=== PATIENT | female | born 1950 | race Caucasian/White ===

== ENCOUNTER 2020-01-03 08:08 | Day surgery (SDC) | payer OTHER ==
--- NOTE | 2020-01-02 15:01 | EKG ---
Test Date: 2020-01-02 Test Time: 10:42:58 [employer]: TORIBIO MEASUREMENT RESULTS: Intervals: Rate: 57 IL: 144 QRSD: 86 QT: 438 QTc: 426 Claude: P: 59 IL: 144 QRS: 24 T: 55 INTERPRETIVE STATEMENTS: Sinus bradycardia with sinus arrhythmia Otherwise normal ECG No previous ECG available for comparison Electronically Signed On 01-02-20 15:00:13 CDT by Noah Angulo
--- OUTSIDE RECORDS SUMMARY | 2020-01-03 08:11 | XMS REPORT ---
:1950 [facility] Address [address] [place] [address] [address] [place] [address] Care Team Providers Name Role Phone Unavailable Unavailable Unavailable Payers Payer Name Policy Type Policy Number Effective Date Expiration Date Problems This patient has no known problems. Allergies, Adverse Reactions, Alerts Allergy Allergy Status Severity Reaction(s) Onset Inactive Treating Comments Name Type Date Date Clinician No Known DA Active U 2019-10 Allergies 30 00:00:0 0 Medications This patient has no known medications. Results Test Description Test Time Test Comments Text Results Atomic Results Result Comments GLUBED 2019-11-22 09:12:00 Test Item Value Reference Range Comments GLUBED (test code=GLUBED) 126 mg/dL 60-125
[2020-01-03] MEDS ORDERED: NA CHLORIDE 0.9% 1,000 ML ONE (08:34)
[2020-01-03] MEDS ORDERED: FENTANYL CITR 100 MCG/2 ML ONE (09:21)
[2020-01-03] MEDS ORDERED: propofoL 200 MG/20 ML VIAL IV ONE (09:21)
[2020-01-03] MEDS ORDERED: LIDOCAINE 2% MPF 5 ML VIAL ONE (09:21)
[2020-01-03] MEDS ORDERED: MIDAZOLAM HCL 2 MG/2 ML INJ ONE (09:21)
[2020-01-03] MEDS ORDERED: NS 0.9% VIAL 10 ML ONE (09:33)
[2020-01-03] MEDS ORDERED: LIDOCAINE 1% W/EPI 1:100,000 MDV 20 ML VIAL ONE (09:44)
[2020-01-03] MEDS ORDERED: BSS OPTHALMIC SOL 15 ML BOT OPTH ONE (09:44)
[2020-01-03] MEDS ORDERED: LANO/MINERAL OIL/PETRO 3.5 GM ONE (09:44)
[2020-01-03] MEDS ORDERED: ONDANSETRON 4 MG/2 ML VIAL ONE (10:10)
[2020-01-03] MEDS ORDERED: dexAMETHasone 4 MG/ML VIAL ONE (10:10)
[2020-01-03] MEDS ORDERED: KETOROLAC 30 MG/ML INJ ONE (10:10)
--- NOTE | 2020-01-03 11:11 | P.BOP ---
Preoperative diagnosis: BCC nose Postoperative diagnosis: same Primary procedure: WLE with local tissue rearrangement, nose Roll Former: NONE,NONE Estimated blood loss: <5ml Specimen: nose, suture 12 oclock, FS Findings: negative margins Anesthesia: General Complications: None Implants: none Fluids & blood products: crystalloid 800ml Transferred to: Recovery Room Condition: Good
[2020-01-03 14:03] VITALS: BP 177/36; TEMP 97.3; O2SAT 100
--- NOTE | 2020-01-04 02:47 | OP ---
Date of Procedure: 01/03/2020 Surgeon: Rosana Galvez MD Preoperative Diagnosis: Basal cell, left nose. Postoperative Diagnosis: Basal cell, left nose. Procedure: Wide local excision, left nasal skin cancer with frozen section and closure by local tiss ue rearrangement including a bilobed flap. Indication For Procedure: Shanelle Sánchez presented to the ENT clinic with a biopsy-proven basal cell carc inoma of the left supratip region. The risks, benefits, and alternatives were discussed with the pat ient. Due to the location of the region, I suspected need for local tissue arrangement and recommend ed the procedure be done under general due to patient's inability to tolerate the procedure under loc al. Description Of Procedure: The patient was brought to the operating room. She was placed under gener al anesthesia via LMA. The nose and upper face were prepped with Betadine and draped in a sterile fa shion. A prior biopsy site including a small area of scab was noted. A Bovie electrocautery was use d to incise through the skin surrounding the lesion with approximately a 2-3 mm gross margin. The ex act margin was challenging due to prior biopsy and biopsy-related changes. The size of the defect wa s 11 x 9 mm. Specimen was marked with a suture at the superior aspect indicating 12 o'clock and was sent to the pathologist for frozen section. While awaiting frozen section, the nose was evaluated wi th regard to closure options. Options considered included healing by secondary intent, which was fel t to result in unsightly scar, skin graft, or local tissue flap. Due to the size and location of the lesion, a bilobed flap was elected and the skin of the nose was elevated using Bovie electrocautery and direct pressure was applied to the site while awaiting frozen section results The frozen section confirmed residual basal cell carcinoma with negative margins and decision was mad e to proceed with a bilobed flap. The flap was cut and rotated into position. The flap was secured with Vicryl sutures and the skin was closed with a running plain gut suture. The skin around the sit e was cleaned and dried and the incision was dressed with antibiotic ointment. The patient was then returned to care of Anesthesia for awakening and extubation in the operating room, which proceeded wi thout difficulty. Complications: None. Disposition: The patient will follow up with Dr. Galvez in about 10 days for an evaluation of wound healing. /SILKE Voice ID: [id number] Report ID: [id number]
== END 2020-01-03 13:45 | disposition home or self-care (01) ==
LOC: OR 08:08
PROVIDERS: ATTEND Otolaryngology
PROC: 0HB1XZZ Excision of Face Skin, External Approach (ICD-10-PCS; principal; 2020-01-03 09:45)
DX: C44.311 Basal cell carcinoma of skin of nose (principal); E11.9 Type 2 diabetes mellitus without complications; I10 Essential (primary) hypertension; E07.9 Disorder of thyroid, unspecified; E66.9 Obesity, unspecified; Z68.37 Body mass index [BMI] 37.0-37.9, adult; Z87.891 Personal history of nicotine dependence; Z80.9 Family history of malignant neoplasm, unspecified; Z82.49 Family history of ischemic heart disease and other diseases of the circulatory system
CPT/HCPCS: 93005; 82947 ×2; 88331; 88332; 88305; 14060; J2704; J2250; J3010; J7030; J2405

== ENCOUNTER 2021-11-21 18:34 | Emergency (ER) | payer OTHER ==
--- OUTSIDE RECORDS SUMMARY | 2021-11-21 18:38 | XMS REPORT | Continuity of Care Document ---
:1950 Author Organization [facility] t Address [address] [place] [address] Care Team Providers Name Role Phone Lia Mcfarland Attending Clinician Unavailable DINORAH Attending Clinician Unavailable Payton Krueger Attending Clinician [phone] Aaron Harding Attending Clinician Unavailable Zeenat Attending Clinician Unavailable Singh Tabor Attending Clinician Unavailable Flor Dang Attending Clinician Unavailable Lia Mcfarland Admitting Clinician Unavailable DINORAH Admitting Clinician Unavailable SALAS Admitting Clinician Unavailable Zeenat Admitting Clinician Unavailable Payers Payer Name Policy Type Policy Number Effective Date Expiration Date S [facility] [id number] 2021 (MEDICARE 00:00:00 REPLACEMENT/ADVANT AGE - HMO) MEDICARE B-[place]: [id number] 2017 [employer] 00:00:00 [employer] [facility] [id number] 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 [facility] Low back Problem Active 2012-102019-02-17 Mem oria pain 1-12 13:56:12 l (disorder) Low back 00:00: He rmann pain 00 (disorder) Active 09/03/2013 Problem 02/17/2019 Data migrated from [email or web address] on 03/21/15. Medical Group Diarrhea Problem Active 2019-02-17 Mem oria (finding) 06-25 13:56:12 l Diarrhea 00:00: Mushtaq n (finding) 00 Active 06/25/2013 Problem 02/17/2019 Data migrated from [email or web address] on 03/21/15. Medical Group Impaired Problem Active 2019-02-17 Mem oria fasting 03-11 13:56:12 l glycaemia Impaired 00:00: Her goyal (disorder) fasting 00 glycaemia (disorder) Active 03/11/2013 Problem 02/17/2019 Data migrated from [email or web address] on 05/27/15. 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 Medical Group Diabetes Problem Active 2019-02-17 Mem oria mellitus 13:56:12 l type 2 Diabetes Mushtaq n (disorder) mellitus type 2 (disorder) Active Problem 02/17/2019 Medical Group Essential Problem Active 2019-02-17 Me moria hypertensi 13:56:12 l on [place] (disorder) Essential hypertensi on (disorder) Active Problem 02/17/2019 Data migrated from [employer] on 03/21/15. Medical Group Hypothyroi Problem Active 2019-02-17 M emoria dism 13:56:12 l (disorder) Mushtaq n Hypothyroi dism (disorder) Active Problem 02/17/2019 Data migrated from [employer] on 03/21/15. Medical Group Obesity Problem Active 2019-02-17 Juanjo everett (disorder) 13:56:12 l Obesity Benjamín (disorder) Active Problem 02/17/2019 Medical Group Peripheral Problem Active 2019-02-17 M emoria nerve 13:56:12 l disease Benjamín (disorder) Peripheral nerve disease (disorder) Active Problem 02/17/2019 Data migrated from [employer] on 03/21/15. Medical Group Diabetes Problem Resolve 2012-2019-02-17 2019-02-17 Memoria mellitus d 03-11 13:56:12 13:56:12 l (disorder) Diabetes 00:00: He rmann mellitus 00 (disorder) Resolved 03/11/2013 Problem 02/17/2019 Data migrated from [employer] on 05/27/15.Edward a migrated from [employer] on 03/21/15. Medical Group Allergies, Adverse Reactions, Alerts Allergy Allergy Status Severity Reaction(s) Onset Inactive Treating Comm ents Source Name Type Date Date Clinician No Known DA Active U 2020-1 [facility] [facility] No Known DA Active U 2020-1 [facility]16 [place] [facility] No Known DA Active U 2020-0 [facility] [place] [facility] No Known DA Active U 2020-0 [facility]ie -[facility] [place] [facility] FLORECITA Allergy Active [place] INHIBITO to da RS substan [facility] e Group Other Other Active Memoria Food Food l Allergy< Allergy< Mushtaq n sup>1</s sup>1</s up> up> Social History Social Habit Start Date Stop Date Quantity Comments Source Social History 2016-05-13 2016-05-13 Karl garrison 21:37:32 21:37:32 Smoking Status Start Date Stop Date Source Former Smoker [facility] Medications Ordered Filled Start Stop Current Ordering Indication Dosage Frequency Signature Comments Components Source Medication Medication Date Date Medication? Clinician (SIG) Name Name Cecilia 2017-10 Yes See Memori a thiazide 0-08 Instructio l 12.5 MG / 21:29: ns, # 90 Herm freddy Losartan 10 tab, TAKE Potassium 1 TABLET 100 MG Oral BY MOUTH Tablet EVERY DAY., Pharmacy: [facility] Hydrochloro No See Memori a thiazide 7-23 Instructio l 12.5 MG / 15:27: ns, # 90 Herm freddy Losartan 29 tab, TAKE Potassium 1 TABLET 100 MG Oral BY MOUTH Tablet EVERY DAY., Pharmacy: [facility] Hydrochloro Yes See Memori a thiazide 6-28 Instructio l 12.5 MG / 14:43: ns, # 90 Herm freddy Losartan 29 tab, TAKE Potassium 1 TABLET 100 MG Oral BY MOUTH Tablet EVERY DAY., Pharmacy: [facility] lisinopril lisinopril No lisinopril [place] 20 mg 20 mg 20 mg da tablet TAKE tablet TAKE tablet Medical 1 TABLET BY 1 TABLET BY TAKE 1 Group MOUTH TWICE MOUTH TWICE TABLET BY DAILY DAILY MOUTH TWICE DAILY metoprolol metoprolol No metoprolol [place] succinate succinate succinate da ER 25 mg ER 25 mg ER 25 mg Med ical tablet,exte tablet,exte tablet,ext Group nded nded ended release 24 release 24 release 24 hr TAKE 1 hr TAKE 1 hr TAKE 1 TABLET BY TABLET BY TABLET BY MOUTH ONCE MOUTH ONCE MOUTH ONCE DAILY FOR DAILY FOR DAILY FOR 30 DAYS 30 DAYS 30 DAYS oxybutynin oxybutynin No oxybutynin [place] chloride ER chloride ER chloride da 10 mg 10 mg ER 10 mg Medical tablet,exte tablet,exte tablet,ext Group nded nded ended release 24 release 24 release 24 hr TAKE 1 hr TAKE 1 hr TAKE 1 TABLET BY TABLET BY TABLET BY MOUTH ONCE MOUTH ONCE MOUTH ONCE DAILY DAILY DAILY valsartan valsartan No valsartan [place] 320 mg 320 mg 320 mg da tablet TAKE tablet TAKE tablet Medical 1 TABLET BY 1 TABLET BY TAKE 1 Group MOUTH ONCE MOUTH ONCE TABLET BY DAILY DAILY MOUTH ONCE DAILY venlafaxine venlafaxine No venlafaxin [place] ER 150 mg ER 150 mg e ER 150 d a capsule,ext capsule,ext mg M edical ended ended capsule,ex Group release 24 release 24 tended hr TAKE 1 hr TAKE 1 release 24 CAPSULE BY CAPSULE BY hr TAKE 1 MOUTH ONCE MOUTH ONCE CAPSULE BY DAILY DAILY MOUTH ONCE DAILY cyclobenzap cyclobenzap No cyclobenza [place] rine 5 mg rine 5 mg elva 5 mg da tablet TAKE tablet TAKE tablet Medical 1 TABLET BY 1 TABLET BY TAKE 1 Group MOUTH ONCE MOUTH ONCE TABLET BY DAILY DAILY MOUTH ONCE NEEDED NEEDED DAILY NEEDED Eliquis 5 Eliquis 5 No Eliquis 5 [place] mg tablet mg tablet mg tablet da TAKE 1 TAKE 1 TAKE 1 Medical TABLET BY TABLET BY TABLET BY Group MOUTH TWICE MOUTH TWICE MOUTH DAILY DAILY TWICE DAILY Euthyrox Euthyrox No Euthyrox [place] 112 mcg 112 mcg 112 mcg da tablet TAKE tablet TAKE tablet Medical 1 TABLET BY 1 TABLET BY TAKE 1 Group MOUTH ONCE MOUTH ONCE TABLET BY DAILY DAILY MOUTH ONCE DAILY furosemide furosemide No furosemide [place] 20 mg 20 mg 20 mg da tablet TAKE tablet TAKE tablet Medical 1 TABLET BY 1 TABLET BY TAKE 1 Group MOUTH TWICE MOUTH TWICE TABLET BY A WEEK FOR A WEEK FOR MOUTH 10 DAYS 10 DAYS TWICE A WEEK FOR 10 DAYS gabapentin gabapentin No gabapentin [place] 400 mg 400 mg 400 mg da capsule capsule capsule Medica l TAKE 1 TAKE 1 TAKE 1 Group CAPSULE BY CAPSULE BY CAPSULE BY MOUTH THREE MOUTH THREE MOUTH TIMES DAILY TIMES DAILY THREE FOR 90 DAYS FOR 90 DAYS TIMES DAILY FOR 90 DAYS Vital Signs Vital Name Observation Time Observation Value Comments Source BP Diastolic 2021-01-01 00:00:00 71 mm[facility]Hg[facility] Height 2021-01-01 00:00:00 66 [in_i] [facility] BMI (Body Mass 2021-01-01 00:00:00 37.3 kg/m2 [facility] Medical Index) Group BP Systolic 2021-01-01 00:00:00 96 mm[facility]Hg[facility] Body Weight 2021-01-01 00:00:00 231.4 [lb_av] [facility] Height 2015-05-11 13:40:41 [facility] Weight 2015-05-11 13:40:41 [facility] Temperature Oral (F) 2015-05-11 13:40:41 98.5 F [facility] Heart Rate 2015-05-11 13:40:41 [facility] [place] Systolic (mm Hg) 2015-05-11 13:40:41 Juanjo rial Benjamín Diastolic (mm Hg) 2015-05-11 13:40:41 Mem o[facility] [place] Height 2015-03-10 16:27:02 [facility] [place] Weight 2015-03-10 16:27:02 [facility] Temperature Oral (F) 2015-03-10 16:27:02 99.0 F [facility] Heart Rate 2015-03-10 16:27:02 [facility] Systolic (mm Hg) 2015-03-10 16:27:02 Juanjo rial [place] Diastolic (mm Hg) 2015-03-10 16:27:02 Mem orial [place] Height 2014-11-24 17:00:01 [facility] Weight 2014-11-24 17:00:01 [facility] [place] Temperature Oral (F) 2014-11-24 17:00:01 99.0 F [facility] Heart Rate 2014-11-24 17:00:01 [facility] [place] Systolic (mm Hg) 2014-11-24 17:00:01 Juanjo rial [place] Diastolic (mm Hg) 2014-11-24 17:00:01 Mem orial [place] Height 2014-10-28 16:43:11 [facility] [place] Weight 2014-10-28 16:43:11 [facility] Temperature Oral (F) 2014-10-28 16:43:11 98.4 F [facility] [place] Respitory Rate 2014-10-28 16:43:11 Memori al [place] Heart Rate 2014-10-28 16:43:11 [facility] Systolic (mm Hg) 2014-10-28 16:43:11 Juanjo rial [place] Diastolic (mm Hg) 2014-10-28 16:43:11 Mem orial [place] Weight 2014-05-26 16:24:20 [facility] Temperature Oral (F) 2014-05-26 16:24:20 99.3 F [facility] Respitory Rate 2014-05-26 16:24:20 Memori al [place] Heart Rate 2014-05-26 16:24:20 [facility] [place] Systolic (mm Hg) 2014-05-26 16:24:20 Juanjo rial [place] Diastolic (mm Hg) 2014-05-26 16:24:20 Mem orial [place] Weight 2014-02-03 20:08:51 [facility] Temperature Oral (F) 2014-02-03 20:08:51 98.0 F [facility] [place] Respitory Rate 2014-02-03 20:08:51 Memori al [place] Heart Rate 2014-02-03 20:08:51 [facility] Systolic (mm Hg) 2014-02-03 20:08:51 Juanjo rial [place] Diastolic (mm Hg) 2014-02-03 20:08:51 Mem orial [place] Weight 2013-09-03 15:45:41 [facility] Temperature Oral (F) 2013-09-03 15:45:41 97.5 F [facility] [place] Systolic (mm Hg) 2013-09-03 15:45:41 Juanjo rial [place] Diastolic (mm Hg) 2013-09-03 15:45:41 Mem o[facility] [place] Heart Rate 2013-09-03 15:45:41 [facility] [place] Weight 2013-06-25 21:36:30 [facility] [place] Temperature Oral (F) 2013-06-25 21:36:30 97.9 F [facility] [place] Systolic (mm Hg) 2013-06-25 21:36:30 Juanjo rial [place] Diastolic (mm Hg) 2013-06-25 21:36:30 Mem orial [place] Heart Rate 2013-06-25 21:36:30 [facility] Weight 2013-03-11 14:36:40 [facility] [place] Height 2013-03-11 14:36:40 [facility] [place] Systolic (mm Hg) 2013-03-11 14:36:40 Juanjo rial [place] Diastolic (mm Hg) 2013-03-11 14:36:40 Mem o[facility] [place] Heart Rate 2013-03-11 14:36:40 [facility] [place] Temperature Oral (F) 2013-03-11 14:36:40 97.7 F [facility] [place] Procedures Procedure Date / Time Performing Clinician Source Performed Incision and drainage of 2009-10-23 00:00:00 Mem orial [place] abdominal abscess<sup>1</sup> Abdominal hysterectomy [facility] Appendectomy [facility] Hiatus hernia repair [facility] Laparoscopic adjustable [facility] [place] gastric banding Tonsillectomy [facility] [place] Tonsillectomy [facility] App[facility] Total [facility]sterectomy [facility] Repair of Shoulder [facility] Encounters Start End Encounter Admission Attending Care Care Encounter Source Date/Time Date/Time Type Type Clinicians Facility Department ID 2020-02-04 Inpatient EDELMIRA JallohPM INTE [id number] [facility] 11:34:00 Placido [id number] [facility] [place] 2020-02-04 Inpatient EDELMIRA JallohPM INTE [id number] [facility] 11:33:00 [facility] [id number] [facility] [place] 2021-11-03 2021-11-03 Outpatient DINORAH [facility] [id number] Sarah Ann 01:08:00 01:08:00 [facility] 2021-11-03 2021-11-03 Outpatient Mell Krueger [facility] [id number] 00:00:00 00:00:00 Payton [id number] 2021-10-12 2021-10-12 Outpatient DINORAH [facility] [id number] Sarah Ann 04:41:00 04:41:00 [facility] 2021-09-23 2021-09-23 Outpatient Champion_P [facility] [id number] [place] 04:23:00 04:23:00 [id number] 2021-09-23 2021-09-23 Outpatient Champion_P [facility] [id number] [place] 04:23:00 04:23:00 [id number] [facility] 2021-09-08 2021-09-08 Outpatient Champion_P [facility] [id number] [place] 05:26:00 05:26:00 [id number] [facility] 2021-09-08 2021-09-08 Outpatient Champion_P [facility] [id number] [place] 05:26:00 05:26:00 [id number] [facility] 2021-09-07 2021-09-07 Outpatient DINORAH [facility] [id number] Sarah Ann 05:31:00 05:31:00 116 [facility] 2021-09-07 2021-09-07 Outpatient Mell Krueger [facility] [id number] 00:00:00 00:00:00 Payton [id number] 2021-07-20 2021-07-20 Outpatient KECLARKE_Aaron [facility] [id number] Sarah Ann 10:50:00 10:50:00 928 [facility] 2021-07-20 2021-07-20 Outpatient Mell Krueger [facility] [id number] 00:00:00 00:00:00 Payton [id number] 2021-07-20 2021-07-20 Outpatient Mell Krueger [facility] [id number] 00:00:00 00:00:00 Payton [id number] 2021-05-18 2021-05-18 Outpatient EL Gahremanpou HCAPM RADI [id number] [facility] 13:16:00 13:16:00 Marlene flores [id number] [facility] [place] 2021-05-13 2021-05-13 Outpatient Gahremanpou HCAPM HCAPM [id number] [facility] 09:00:00 09:00:00 Marlene flores [id number] [facility] [place] 2021-04-27 2021-04-27 Outpatient BALJIT_Aaron [facility] [id number] Sarah Ann 05:12:00 05:12:00 706 [facility] 2021-04-27 2021-04-27 Outpatient Mell Krueger [facility] [id number] 00:00:00 00:00:00 Payton [id number] 2021-04-08 2021-04-08 Outpatient KEFFER_A [facility] [id number] Sarah Ann 12:42:00 12:42:00 617 [facility] 2021-04-08 2021-04-08 Outpatient KEFFER_A [facility] [id number] Sarah Ann 12:42:00 12:42:00 701 [facility] 2021-04-08 2021-04-08 Outpatient Baljit, Mell [facility] [id number] 00:00:00 00:00:00 Payton [id number] 2021-02-04 2021-02-04 Outpatient KEFFER_A [facility] [id number] Sarah Ann 01:22:00 01:22:00 415 [facility] 2021-02-04 2021-02-04 Outpatient KEFFER_A [facility] [id number] Sarah Ann 01:22:00 01:22:00 531 [facility] 2021-02-04 2021-02-04 Outpatient Mell Krueger [facility] [id number] 00:00:00 00:00:00 Payton [id number] 2021-01-06 2021-01-06 Outpatient KEFFER_A [facility] [id number] Sarah Ann 12:58:00 12:58:00 317 [facility] 2021-01-06 2021-01-06 Outpatient Mell Krueger [facility] [id number] 00:00:00 00:00:00 Payton [id number] 2021-01-05 2021-01-05 Outpatient KEFFER_A [facility] [id number] Sarah Ann 05:38:00 05:38:00 316 [facility] 2021-01-02 2021-01-02 Outpatient Yan_W [facility] [id number] [place] 12:15:00 12:15:00 0313 Medical [facility] 2021-01-01 2021-01-01 [facility] [id number] [place] 11:18:00 11:18:00 0312 [facility] 2021-01-01 2021-01-01 FLORECITA Rosenbaum [place] - [id number] [place] 00:00:00 00:00:00 : Leticia Real [facility] [address], [facility] [facility] [address] , Ph. 2020-12-31 2020-12-31 Outpatient Yan_W [facility] MMG [id number] [place] 05:34:00 05:34:00 0311 [facility] 2020-12-22 2020-12-22 Outpatient MMG MMG [id number] [place] 03:56:00 03:56:00 0302 [facility] 2020-12-21 2020-12-21 Outpatient MMG MMG [id number] [place] 01:36:00 01:36:00 301 [facility] 2020-12-21 2020-12-21 Outpatient MMG [id number] [id number] [place] 01:36:00 01:36:00 302 [facility] 2020-11-18 2020-11-18 Outpatient BALJIT_Aaron [facility] [id number] Sarah Ann 12:35:00 12:35:00 127 [facility] 2020-11-18 2020-11-18 Outpatient Mell Krueger [facility] [id number] 00:00:00 00:00:00 Payton [id number] 2020-10-07 2020-10-07 Outpatient Sharona, EDELMIRATO PAIN [id number] [facility] 09:00:00 09:00:00 Willy [id number] [facility] 2020-02-05 2020-02-05 Outpatient EDELMIRA McfarlandCL OUTD [id number] [facility] 00:13:00 00:13:00 Placido [id number] [facility] 2020-02-05 2020-02-05 Outpatient Bartolo, HCACL OUTD [id number] [facility] 00:13:00 00:13:00 Placido [id number] [facility] 2019-11-22 2019-11-22 Outpatient EDELMIRA DangTO SURG [id number] [facility] 14:00:00 14:00:00 Andres [id number] [facility] 2018-07-30 2018-08-01 Phone [facility] [id number] Memoria 20:07:00 04:59:59 Message r Primary 21 l Care Chetan Shelley nn 2018-05-14 2018-05-16 Phone nullFlavo [facility] [id number] Memoria 13:49:00 04:59:59 Message r Primary 20 flor Rosa nn 2018-04-19 2018-04-21 Phone nullFlavo [facility] [id number] Memoria 14:01:00 04:59:59 Message r Primary 19 flor Rosa nn 2017-02-16 2017-02-16 Outpatient MHIE MHIE [id number] Memoria 13:00:00 13:00:00 12 flor [place]jam[place] 2016-12-01 2016-12-01 Outpatient MHIE MHIE [id number] Memoria 09:15:00 09:15:00 11 flor [place]jamín 2016-12-01 2016-12-01 Outpatient MHIE MHIE [id number] Memoria 09:15:00 09:15:00 10 flor [place] 2016-12-01 2016-12-01 Outpatient MHIE MHIE [id number] Memoria 08:00:00 08:00:00 09 flor [place]ín 2016-11-21 2016-11-21 Outpatient MHIE MHIE [id number] Memoria 10:00:00 10:00:00 07 flor [place] 2016-11-21 2016-11-21 Outpatient MHIE MHIE [id number] Memoria 08:00:00 08:00:00 08 flor Butts 2016-11-04 2016-11-04 Outpatient MHIE MHIE [id number] Memoria 10:00:00 10:00:00 06 flor Butts 2016-09-08 2016-09-08 Outpatient MHIE MHIE [id number] Memoria 13:45:00 13:45:00 05 flor Butts 2016-05-13 2016-05-13 Outpatient MHIE MHIE [id number] Memoria 16:25:00 16:25:00 04 flor Butts 2015-12-31 2015-12-31 Outpatient MHIE MHIE [id number] Memoria 10:00:00 10:00:00 03 flor Butts 2015-08-26 2015-08-26 Outpatient MHIE MHIE [id number] Memoria 16:00:00 16:00:00 02 flor Butts 2015-07-17 2015-07-17 Outpatient MHIE MHIE [id number] Memoria 16:25:00 16:25:00 01 flor Benjamín 2015-05-11 2015-05-11 Outpatient [facility] MHIE [id number] Memoria 09:00:00 09:00:00 00 flor Benjamín Results Test Description Test Time Test Comments Results Result [facility] e Comments - XR FLUORO FOR 2020-10-07 SPINE INJ 22:02:00 [facility] : 1950 Sex: F Patient Name: FREDDY REYNOSO Unit No: [id number] EXAMS: CPT CODE: [id number] XR FLUORO FOR SPINE INJ 20752 DIAGNOSTIC CERVICAL TRANSFORAMINAL EPIRADICULAR INJECTION REFERRAL PHYSICIAN: Bird Presley M.D. PREOPERATIVE DIAGNOSIS: Cervical radiculitis.. POSTOPERATIVE DIAGNOSIS: Right C5-6 facet subluxation with moderate bony foraminal stenosis and primary right C6 radicular pain PROCEDURES PERFORMED: Fluoroscopically guided needle localization of the right C5 and right C6 spinal nerves with transforaminal epidurograms and epidural injection of local anesthetic and steroid. FINDINGS: Facet subluxation and mild hypertrophy with uncovertebral joint mild hypertrophy produces moderate bony foraminal stenosis at C5-6 on the right. Good flow seen through the right C4-5 foramen and posterior right C5-6 foramen. Provocation with injection was negative. Anesthetic response was positive with the patient noting complete relief of her right neck and upper extremity pain. Preinjection VAS 8/10. Postinjection VAS 0/10. Steroid response pending follow-up. ESTIMATED BLOOD LOSS: Minimal ANESTHESIA: TIVA COMPLICATIONS: None. DETAILS OF PROCEDURE: After obtaining stable vital signs, informed consent and IV access, with no contraindications, the patient was taken to the operating room and placed in a 15 degree head-up supine position with all extremities padded and appropriate monitors placed. The patient was sterilely prepped and draped over the neck. Using fluoroscopic visualization, the insertion sites were marked for anterolateral paravertebral approaches and using standard technique, a 27 gauge needle was advanced until contacting each corresponding superior articular process without paresthesias. Isovue-300 contrast 0.5 mL was injected incrementally with digital subtraction to produce each epidurogram. There were no signs of intravascular or intrathecal uptake. Lidocaine 4% 0.8 mL with Decadron 8 mg was then injected incrementally with frequent negative aspirations at each site. There were no signs of intravascular or intrathecal uptake. The needles were removed and the patient was taken to the PACU in good condition. Image: Image 1 Image: Image 2 at 2201 Reported and signed by: Willy Tabor M.D. [facility] NAME: FREDDY REYNOSO [address] [facility] PHYS: Willy Brown MD [place], [place] [address] : 1950 AGE: 70 SEX: F LOC: [place] PHONE #: [phone] EXAM DATE: 10/07/2020 STATUS: [facility] FA[place] #: [phone] RAD #: D/C DT PAGE 1 Signed Report (CONTINUED) Patient Name: FREDDY REYNOSO MARIO Unit No: [id number] EXAMS: CPT CODE: [id number] XR FLUORO FOR SPINE INJ 08438 <Continued> CC: Technologist: Laura Suero(R) Transcribed D/ (2201) [facility] NAME: FREDDY REYNOSO [address] [facility] PHYS: Willy Brown MD [place], [place] [address] : 1950 AGE: 70 SEX: F LOC: [place] PHONE #: [phone] EXAM DATE: 10/07/2020 STATUS: [facility] FA[place] #: [phone] RAD #: D/C DT PAGE 2 Signed Report Patient Name: FREDDY REYNOSO Unit No: [id number] EXAMS: CPT CODE: [id number] XR FLUORO FOR SPINE INJ 20827 <Continued> Orig Print D/T: S: 10/07/2020 (2205) [facility] NAME: FREDDY REYNOSO [address] [facility] PHYS: Willy Brown MD [place], [place] [address] : 1950 AGE: 70 SEX: F LOC: VEDA PHONE #: [phone] EXAM DATE: 10/07/2020 STATUS: REG [facility] FAX #: [phone] RAD #: D/C DT PAGE 3 Signed Report GLUCOSE BEDSIDE TESTING 2020-02-05 11:16:00 Test Item Value Reference Range Interpretation Comme nts GLUCOSE BEDSIDE TESTING (test code = GLUBED) 176 mg/dL 70-110 H GLUCOSE BEDSIDE [id number] 07:21:00 Test Item Value Reference Range Interpretation Comments GLUCOSE BEDSIDE TESTING (test code 163 mg/dL 70-110 H = GLUBED) BASIC METABOLIC [id number] 06:06:00 Test Item Value Reference Range Interpretation Comments SODIUM (test code = NA) 142 mmol/L 134-147 N POTASSIUM (test code = 3.5 mmol/L 3.4-5.0 N K) CHLORIDE (test code = 106 mmol/L 100-108 N CL) CARBON DIOXIDE (test 29 mmol/L 21-32 N code = CO2) ANION GAP (test code = 7.0 GAP calc 4.0-15.0 N GAP) GLUCOSE (test code = 111 MG/DL 70-110 H GLU) BLOOD UREA NITROGEN 18 MG/DL 7-18 N (test code = BUN) GLOMERULAR FILTRATION >=60 max estimate >60 RATE (test code = GFR) estGFR CREATININE (test code = 0.9 MG/DL 0.6-1.0 N CREAT) CALCIUM (test code = CA) 9.2 MG/DL 8.5-10.1 N CBC W/AUTO [id number] 05:57:00 Test Item Value Reference Range Interpretation Comments WHITE BLOOD CELL (test code = 9.6 K/mm3 3.5-11.0 N WBC) RED BLOOD CELL (test code = RBC) 5.08 M/mm3 4.70-6.10 N HEMOGLOBIN (test code = HGB) 14.7 G/DL 10.4-14.9 N HEMATOCRIT (test code = HCT) 45.6 % 31.5-44.1 H MEAN CELL VOLUME (test code = 89.8 Fl 84.5-98.6 N MCV) MEAN CELL HGB (test code = MCH) 28.9 pg 27.0-34.2 N MEAN CELL HGB CONCETRATION (test 32.2 G/DL 31.5-34.0 N code = MCHC) RED CELL DISTRIBUTION WIDTH (test 14.2 SD 11.5-14.5 N code = RDW) PLATELET COUNT (test code = PLT) 250.0 K/mm3 150-450 N MEAN PLATELET VOLUME (test code = 10.70 fL 7.0-10.5 H MPV) NEUTROPHIL % (test code = NT%) 50.6 % 40-76 LYMPHOCYTE % (test code = LY%) 38.7 % 20.5-51.1 N MONOCYTE % (test code = MO%) 7.6 % 1.7-9.3 N EOSINOPHIL % (test code = EO%) 2.6 % 0.0-6.0 N BASOPHIL % (test code = BA%) 0.5 % 0.0-2.0 N NEUTROPHIL # (test code = NT#) 4.84 K/mm3 1.8-7.6 N LYMPHOCYTE # (test code = LY#) 3.7 K/mm3 0.6-3.2 H MONOCYTE # (test code = MO#) 0.7 K/mm3 0.3-1.1 N EOSINOPHIL # (test code = EO#) 0.3 K/mm3 0.0-0.4 N BASOPHIL # (test code = BA#) 0.1 K/mm3 0.0-0.1 N MANUAL DIFF REQUIRED (test code = NO DIFF/SCN CRITERIA MDIFF) RULE OUT [place] [id number] 00:54:00 Test Item Value Reference Range Interpretation Comments CREATINE KINASE 68 Unit/L 26-192 N (CK) (test code = CK) TROPONIN-I (test 0.137 NG/ML 0.000-0.045 HH Negative: < /= 0.045 code = TROPI) Positive: >/= 0.046 Correlation wit h serial results, other cardiac markers, and cl inical findings is nec essary to determine th e clinical signi ficance of this result. Quantitative re sults using different methodologies s hould not be compared to one another as nume rical results may siva yby method. GLUCOSE BEDSIDE [id number] 21:28:00 Test Item Value Reference Range Interpretation Comments GLUCOSE BEDSIDE TESTING (test code 120 mg/dL 70-110 H = GLUBED) RULE OUT OH [id number] 17:55:00 Test Item Value Reference Range Interpretation Comments CREATINE KINASE 76 Unit/L 26-192 N (CK) (test code = CK) TROPONIN-I (test 0.344 NG/ML 0.000-0.045 HH Negative: < /= 0.045 code = TROPI) Positive: >/= 0.046 Correlation wit h serial results, other cardiac markers, and cl inical findings is nec essary to determine th e clinical signi ficance of this result. Quantitative re sults using different methodologies s hould not be compared to one another as nume rical results may siva yby method. LACTIC [id number] 17:48:00 Test Item Value Reference Range Interpretation Comments LACTIC ACID (test code = LACT) 1.5 mmol/L 0.4-2.0 N GLUCOSE BEDSIDE [id number] 16:55:00 Test Item Value Reference Range Interpretation Comments GLUCOSE BEDSIDE TESTING (test code 124 mg/dL 70-110 H = GLUBED) [id number] 13:35:00 Test Item Value Reference Range Interpretation Comments D-DIMER (test code = DDIMER) 453 ng/mLFEU 215-500 N GLYCOSYLATED HEMOGLOBIN [id number] 12:59:00 Test Item Value Reference Range Interpretation Comments GLYCOSYLATED HEMOGLOBIN (HA1C) 6.5 % A1C 0.0-5.7 H (test code = GLYHGB) ESTIMATED AVERAGE GLUCOSE (test 140 MG/DLest code = EAG) LACTIC [id number] 12:50:00 Test Item Value Reference Range Interpretation Comments LACTIC ACID (test code = LACT) 2.1 mmol/L 0.4-2.0 H COMPREHENSIVE METABOLIC [id number] 12:49:00 Test Item Value Reference Range Interpretation Comments SODIUM (test code = NA) 141 mmol/L 134-147 N POTASSIUM (test code = K) 3.4 mmol/L 3.4-5.0 N CHLORIDE (test code = CL) 107 mmol/L 100-108 N CARBON DIOXIDE (test code = CO2) 28 mmol/L 21-32 N ANION GAP (test code = GAP) 6.0 GAP calc 4.0-15.0 N GLUCOSE (test code = GLU) 144 MG/DL 70-110 H BLOOD UREA NITROGEN (test code = 13 MG/DL 7-18 N BUN) GLOMERULAR FILTRATION RATE (test 59 estGFR >60 L code = GFR) CREATININE (test code = CREAT) 1.0 MG/DL 0.6-1.0 N TOTAL PROTEIN (test code = PROT) 6.8 G/DL 6.4-8.2 N ALBUMIN (test code = ALB) 3.6 G/DL 3.4-5.0 N GLOBULIN (test code = GLOB) 3.2 GM/dL ALBUMIN/GLOBULIN RATIO (test 1.1 RATIO 1.2-2.2 L code = A/G) CALCIUM (test code = CA) 8.4 MG/DL 8.5-10.1 L BILIRUBIN TOTAL (test code = 0.40 MG/DL 0.2-1.2 N BILT) SGOT/AST (test code = AST) 11 Unit/L 15-37 L SGPT/ALT (test code = ALT) 18 Unit/L 12-78 N ALKALINE PHOSPHATASE TOTAL (test 83 Unit/L 45-117 N code = ALKP) LIPID PROFILE (CORONARY RISK)2020-02-04 12:49:00 Test Item Value Reference Range Interpretation Comments TRIGLYCERIDES (test code = TRIG) 247 MG/DL 0-150 H CHOLESTEROL (test code = CHOL) 195 MG/DL 133-200 N CHOLESTEROL/HDL RATIO (test code = 4.33 RATIO >0 CHOLHDL) HDL CHOLESTEROL (test code = HDL) 45 MG/DL 40-59 N NON-HDL CHOLESTEROL (test code = 150 mg/dL <130 H NHDL) LIPOPROTEIN LDL (test code = LDL) 125 MG/DL 0-129 N LDL/HDL (test code = LDL/HDL) 2.77 Ratio 1.48-3.22 Avg N [id number] 12:49:00 Test Item Value Reference Range Interpretation Comments PHOSPHOROUS (test code = PHOS) 3.4 MG/DL 2.5-4.9 N RULE OUT OH [id number] 12:49:00 Test Item Value Reference Range Interpretation Comments CREATINE KINASE 94 Unit/L 26-192 N (CK) (test code = CK) TROPONIN-I (test 0.251 NG/ML 0.000-0.045 HH Negative: < /= 0.045 code = TROPI) Positive: >/= 0.046 Correlation wit h serial results, other cardiac markers, and cl inical findings is nec essary to determine th e clinical signi ficance of this result. Quantitative re sults using different methodologies s hould not be compared to one another as nume rical results may siva yby method. [id number] 12:49:00 Test Item Value Reference Range Interpretation Comments MAGNESIUM (test code = MAG) 1.8 MG/DL 1.8-2.4 N THYROID STIMULATING [id number] 12:49:00 Test Item Value Reference Range Interpretation Comments THYROID STIMULATING HORMONE 2.810 mcIU/ML 0.340-4.820 N (test code = TSH) CBC W/AUTO [id number] 12:33:00 Test Item Value Reference Range Interpretation Comments WHITE BLOOD CELL (test code = 9.4 K/mm3 3.5-11.0 N WBC) RED BLOOD CELL (test code = RBC) 4.78 M/mm3 4.70-6.10 N HEMOGLOBIN (test code = HGB) 13.7 G/DL 10.4-14.9 N HEMATOCRIT (test code = HCT) 42.7 % 31.5-44.1 N MEAN CELL VOLUME (test code = 89.3 Fl 84.5-98.6 N MCV) MEAN CELL HGB (test code = MCH) 28.7 pg 27.0-34.2 N MEAN CELL HGB CONCETRATION (test 32.1 G/DL 31.5-34.0 N code = MCHC) RED CELL DISTRIBUTION WIDTH (test 13.8 SD 11.5-14.5 N code = RDW) PLATELET COUNT (test code = PLT) 243.0 K/mm3 150-450 N MEAN PLATELET VOLUME (test code = 10.80 fL 7.0-10.5 H MPV) NEUTROPHIL % (test code = NT%) 57.8 % 40-76 N LYMPHOCYTE % (test code = LY%) 29.7 % 20.5-51.1 N MONOCYTE % (test code = MO%) 8.8 % 1.7-9.3 N EOSINOPHIL % (test code = EO%) 3.3 % 0.0-6.0 N BASOPHIL % (test code = BA%) 0.4 % 0.0-2.0 N NEUTROPHIL # (test code = NT#) 5.43 K/mm3 1.8-7.6 N LYMPHOCYTE # (test code = LY#) 2.8 K/mm3 0.6-3.2 N MONOCYTE # (test code = MO#) 0.8 K/mm3 0.3-1.1 N EOSINOPHIL # (test code = EO#) 0.3 K/mm3 0.0-0.4 N BASOPHIL # (test code = BA#) 0.0 K/mm3 0.0-0.1 N MANUAL DIFF REQUIRED (test code = NO DIFF/SCN CRITERIA MDIFF) [id number] 09:12:00 Test Item Value Reference Range Interpretation Comments GLUBED (test code = GLUBED) 126 mg/dL 60-125 H [id number] 14:55:0032[facility] JuinwvjVctvvuuod6700-72-17 14:55:0022 [facility] KzptpowLihfteffj9401-63-26 14:55:0086[facility] 2015-05-11 14:55:000.915[facility] DltlxiuVygytywxrs5768-00-90 14:55:0014.9 [facility] WuvfgvcZxnzqsckmu7232-46-48 14:55:0044.8[facility] 2015-05-11 14:55:84334 K/CMMMemorial IhamcidBuhisjhdy1830-56-71 14:55:005.8 [facility] MshjwspKwqjfltct3842-96-88 14:55:44671Vbdbdzxi [facility] 2015-05-11 14:55:20836Qkdkijvn BobttlsNnkqvafml1699-56-29 14:55:0057[facility] BsoimrjUhmfucufb1765-74-76 14:55:0097[facility] SvpwgiuYiprrmvhl3978-23-21 14:55:62447 MEQ/LMemorial DbcvgtkFfvdeoqvu9986-89-73 14:55:004.1 MEQ/LMemorial WklkkyzKmhkgwxfx1653-89-09 14:55:001.1[facility] KagtdieEdsbudhcs3939-31-07 14:55:0024[facility] DqxrxfvRmokieuri6531-06-55 14:55:00 Test Item Value Reference Range Interpretation Comments BUN/CREAT (test code = BUN/CREAT) 22 04-16 [facility] JluujalDxaqaibbu3055-61-46 14:55:004.4[facility] 2015-05-11 14:55:009.7[facility] CqypnjeJudrlubha5873-33-22 17:30:005.9[facility] OqwkyikZcuaocujv2872-46-99 17:30:94774Lontvijt SicauxaNvcunvrjv8835-35-36 17:30:80394Flnikchi XwgraewOkuoqtybz6534-98-45 17:30:0062[facility] Sagjtnuch4568-30-60 17:30:26950Cojvtidc TnrpgkjXeqvjmqog1921-98-74 17:30:96436 MEQ/LMemorial YjraregBhwjvdmjy4456-60-20 17:30:004.1 [facility] Etjuuxdpy2746-38-22 17:30:000.9[facility] MpqtnfeFzvpafnja4052-13-78 17:30:0017 [facility] SvcblpoIlhjkacep8069-55-44 17:30:00 Test Item Value Reference Range Interpretation Comments BUN/CREAT (test code = BUN/CREAT) 19 04-16 [facility] FjgkgezWbyzwipog0274-39-22 17:30:003.9[facility] 2014-10-28 17:30:008.7[facility] ZgswdhtAdpplpfmr4252-25-94 17:30:0032[facility] AzlptmbYdybdhzxo8385-22-92 17:30:0020[facility] MdybgliNxvvjmomf2083-69-40 17:30:0082[facility] YdghwixNzsssymdf8383-01-26 17:30:002.030[facility] Fousppnoq6770-70-82 17:30:005.9[facility] YxkvyeaKdncbnaxq9864-74-45 17:30:95182 [facility] MdqrvasRmfycnwrh5552-75-44 17:30:85513Sskukfmc HermannHematology 2014-10-28 17:30:0014.0[facility] IkrdnmiQlmshodzby9632-39-98 17:30:0042.0[facility] FstpytiEjyvynetiq1694-77-42 17:30:87783 K/CMMMemorial [facility]annChemistry 2014-05-26 17:20:001.31[facility] VzggclbBfovugbea9229-57-53 17:20:001.810[facility] YtpaeurNpuczzvut8152-50-69 17:20:001.31[facility] HztkptcFyjjqpgtr0890-92-05 17:20:001.810[facility] LuqgcktWsilvxczs0805-92-23 17:20:001.31[facility] Ucwkjkbcy8336-53-00 17:20:001.810[facility] LdqjocbGoctjlabw1027-80-48 21:15:006.2 [facility] IcimshjMojhrzsoq7489-31-62 21:15:88632Xgjdwqch [facility] 2014-02-03 21:15:13685Mycuyzik YyfxnexUxbysiwhl3228-98-35 21:15:006.2[facility] SprogauBigtolejm6416-33-56 21:15:83960Ydqjnhta TsimjaqHcaoficfl8446-72-42 21:15:36915Kbbogiil QxmwdbyCrdhshhil3407-87-14 21:15:006.2[facility] Kwknjbhdg6256-84-68 21:15:29900Dcnetodx PmaitolLlymsfjyi2721-23-66 21:15:78774 [facility] EoqkypsTgbgzcsfx4692-47-38 21:15:0049[facility] 2014-02-03 21:15:03439Uhinxggn McvnxgsHyqgbxmjx2126-74-07 21:15:00681 MEQ/L [facility] CqzsiznMyyknmwep4641-54-18 21:15:003.8 MEQ/L[facility] 2014-02-03 21:15:000.9[facility] QouepkzGwbtaamcx6207-83-24 21:15:0021[facility] KelwayhLnabebdyh8150-11-25 21:15:00 Test Item Value Reference Range Interpretation Comments BUN/CREAT (test code = BUN/CREAT) 23 1 6-25 [facility] DesqorrLsowrmaaq7728-40-24 21:15:004.1[facility] 2014-02-03 21:15:009.3[facility] SdsykcfVefmqevcm8093-79-69 21:15:0036[facility] CmsertgDiudyoiev1322-01-85 21:15:0022[facility] KgbqxitRbvbtysgq8447-07-54 21:15:0088[facility] MnpsvcqShjmupxva3308-92-05 21:15:0021.100[facility] Lyrcgmrhbx8138-30-78 21:15:0014.5[facility] MksmpqtDrewpzicfi2789-17-33 21:15:00 43.3[facility] XxzywcgFwmjftxmyd6798-47-87 21:15:30080 K/CMMMemorial [facility] Xeeludvgs0744-22-76 15:10:007.4[facility] EvmbccfJjlysrjhe3015-98-24 15:10:007.4 [facility] ArjzynkEggafudlv8759-80-21 15:10:007.4[facility] 2013-03-11 15:10:007.4[facility] ExgqtfvAdjsufdvz1914-28-08 17:30:007.7[facility] RovqlubIczwbekoy3429-51-68 17:30:61827Ltngxxci BhhkwwdCnsonxmjq1215-56-20 17:30:68544Jkgckfjf VeocbaqSjfpgosqn5106-21-36 17:30:007.7[facility] Tcejosedk5335-56-54 17:30:34144Kiybgfgr TbkvtkwCmohtudrs7408-67-71 17:30:96818 [facility] DvlmahlErwzbppbl9338-26-16 17:30:007.7[facility] 2012-11-23 17:30:05782Dsqaqzxr VbnhpydKihmjhkvy4009-66-77 17:30:11460Doxruojz PynouulZnjhtxlph2256-86-58 17:30:0042[facility] TgmdpecZepdsvnyt2696-43-41 17:30:0099[facility] VzroaqcYmaneehis7476-69-11 17:30:65768 MEQ/L[facility] Andtrzfyw3641-84-27 17:30:004.1 MEQ/LMemorial CkdsjcgJkabijcwt0843-19-52 17:30:000.7[facility] MfxolvgIdmtwgwox6835-90-21 17:30:0014[facility] Whiojqvmc8274-86-91 17:30:00 Test Item Value Reference Range Interpretation Comments BUN/CREAT (test code = BUN/CREAT) 20 1 6-25 [facility] VdqlhtsNlidgzzea8408-74-72 17:30:007.7[facility] 2012-11-23 17:30:13558Kxeudezc GqatsdzMwhzwqrji3272-54-52 17:30:60113Vpbtrjln DcvgmdePpzcerpxu0027-69-44 17:30:004.1[facility] RfyszdbIlaxzrauu7868-25-90 17:30:008.8[facility] YrxiwafVemugrmaq3886-58-98 17:30:0033[facility] Vlogdqzed1146-79-94 17:30:0022[facility] OsqavnkRcktcmcsl4183-49-01 17:30:0085 [facility] CnvjrmnGlhfsittp5382-30-85 17:30:003.550[facility] 2012-11-23 17:30:0014.2[facility] LaddbcqOjrbxqgaoh4702-31-37 17:30:0042.4[facility] MfvobilVfjfbxjjht3228-53-26 17:30:35545 K/CMMMemorial [facility]
--- NOTE | 2021-11-21 23:44 | ER ---
Nurse's Notes [facility] Name: Shanelle Sánchez Age: 71 yrs Sex: Female : 1950 Arrival Date: 11/21/2021 Time: 18:36 Bed 4 Private MD: Diagnosis: Contusion of lower back and pelvis-coccyx;Contusion of other part of head-forehead and left occipital area;Fall on same level, unspecified Presentation: 11/21 19:04 Chief complaint: Patient states: fell two days ago onto concrete and hit forehead, pt vg1 appears to have bruising to forehead; pt states also fell last night onto back on concrete and states 'my head bounced'; states h/a, blurred vision, and dizziness and NV today. Coronavirus screen: Vaccine status: Patient reports receiving the 2nd dose of the covid vaccine. Client denies travel out of the [place] in the last 14 days. Ebola Screen: Patient negative for fever greater than or equal to 101.5 degrees Fahrenheit, and additional compatible Ebola Virus Disease symptoms. Initial Sepsis Screen: Does the patient meet any 2 criteria? No. Patient's initial sepsis screen is negative. Does the patient have a suspected source of infection? No. Patient's initial sepsis screen is negative. Risk Assessment: Do you want to hurt yourself or someone else? Patient reports no desire to harm self or others. Onset of symptoms was November 19, 2021. 19:04 Method Of Arrival: Ambulatory vg1 19:04 Acuity: WHITLEY 3 vg1 Triage Assessment: 19:06 General: Appears uncomfortable, Behavior is calm, cooperative. Pain: Complains of pain vg1 in head and back Pain currently is 6 out of 10 on a pain scale. Neuro: Level of Consciousness is awake, alert, obeys commands, Oriented to person, place, time, situation. Historical: - Allergies: 19:06 No Known Allergies; vg1 - PMHx: 19:06 Hypertensive disorder; Myocardial infarction; Atrial fibrillation; vg1 - PSHx: 19:06 Appendectomy; Tonsillectomy; Hysterectomy; vg1 - Immunization history:: Client reports receiving the 2nd dose of the Covid vaccine. - Social history:: Smoking status: Patient denies any tobacco usage or history of. - Immunization history: Last tetanus immunization: unknown. Screenin:47 Abuse screen: Denies threats or abuse. Denies injuries from another. Nutritional as6 screening: No deficits noted. Tuberculosis screening: No symptoms or risk factors identified. Fall Risk Fall in past 12 months (25 points). Total Gandhi Fall Scale indicates Low Risk Score (25-44 pts). Side Rails Up X 2 Family Present and informed to notify staff if they need to leave bedside As available Patient and Family Educated on Fall Prevention Program and strategies. Primary Survey: 21:47 NO uncontrolled hemorrhage observed. Breathing/Chest: Respiratory pattern: regular. as6 Circulation: Pulses: palpable . Disability Alert. Exposure/Environment: A warming method has been applied: A warm blanket has been provided to the patient. Assessment: 21:44 General: Appears in no apparent distress. Behavior is calm, cooperative. Pain: as6 Complains of pain in left parietal area, right parietal area and occipital area. Neuro: Level of Consciousness is awake, alert, obeys commands, Oriented to person, place, time, situation, Reports headache. Cardiovascular: Capillary refill < 3 seconds Patient's skin is warm and dry. Respiratory: Airway is patent Trachea midline Respiratory effort is even, unlabored, Respiratory pattern is regular, symmetrical. Derm: Bruising that is yellow, on forehead. 11/22 00:12 General: The pt acknowledged that she is going to call her grandson to pick her up. She sonya was given her dc paperwork. . Vital Signs: 11/21 19:04 BP 171 / 56; Pulse 61; Resp 16; Temp 97.0; Pulse Ox 98% ; Weight 98.88 kg; Height 5 ft. vg1 6 in. (167.64 cm); Pain 6/10; 21:46 BP 159 / 54; Pulse 56; Resp 18 S; Pulse Ox 100% on R/A; as6 23:05 BP 169 / 52; Pulse 53; Resp 18 S; Pulse Ox 100% on R/A; as6 11/22 00:10 BP 161 / 59; Pulse 81; Resp 18; Pulse Ox 98% on R/A; sonya 11/21 19:04 Body Mass Index 35.19 (98.88 kg, 167.64 cm) vg1 Niles Coma Score: 11/21 21:47 Eye Response: spontaneous(4). Verbal Response: oriented(5). Motor Response: obeys as6 commands(6). Total: 15. Trauma Score (Adult): 21:47 Eye Response: spontaneous(1); Verbal Response: oriented(1); Motor Response: obeys as6 commands(2); Systolic BP: > 89 mm Hg(4); Respiratory Rate: 10 to 29 per min(4); Niles Score: 15; Trauma Score: 12 ED Course: 18:36 Patient arrived in ED. ds1 19:06 Triage completed. vg1 19:06 Arm band placed on. vg1 21:28 Inocente Garcia, RN is Primary Nurse. as6 21:40 Kike Rodriges NP is PHCP. pm1 21:40 Neno Quiroz MD is Attending Physician. pm1 22:41 Sacrum And Coccyx XRAY In Process Unspecified. EDMS 23:06 CT Head C Spine In Process Unspecified. EDMS Administered Medications: No medications were administered Outcome: 23:44 Discharge ordered by MD. pm1 11/22 00:31 Patient left the ED. sonya Signatures: Dispatcher [employer] EDMS [place] ds1 Kike Rodriges, BASSAM CAN INTAKE WORKER pm1 Rabia Scales RN ANILA vg1 Inocente Garcia, ANILA RN as6 Pamela Pruitt RN ANILA hassan
--- NOTE | 2021-11-21 23:45 | EDPHYS ---
Physician Documentation [facility] Name: Shanelle Sánchez Age: 71 yrs Sex: Female : 1950 Arrival Date: 11/21/2021 Time: 18:36 Bed 4 Private MD: ED Physician Neno Quiroz HPI: 11/21 21:58 This 71 yrs old Female presents to ER via Ambulatory with complaints of Fall Injury. pm1 21:58 Details of fall: The patient fell from an upright position, while walking. Onset: The pm1 symptoms/episode began/occurred 3 day(s) ago, And 1 day ago. Associated injuries: The patient sustained injury to the head, abrasion, contusion. Severity of symptoms: in the emergency department the symptoms are unchanged. The patient has not experienced similar symptoms in the past. The patient has not recently seen a physician. Patient fell 3 days ago when she and a mechanical fall forward due to her dog and hit her left side of her forehead with resulting contusion. No LOC neck pain present. Patient fell yesterday due to opening up the door and falling backward when the door swung open and pushed her backwards. Historical: - Allergies: 19:06 No Known Allergies; vg1 - PMHx: 19:06 Hypertensive disorder; Myocardial infarction; Atrial fibrillation; vg1 - PSHx: 19:06 Appendectomy; Tonsillectomy; Hysterectomy; vg1 - Immunization history:: Client reports receiving the 2nd dose of the Covid vaccine. - Social history:: Smoking status: Patient denies any tobacco usage or history of. - Immunization history: Last tetanus immunization: unknown. ROS: 21:58 Constitutional: Negative for fever, chills, and weight loss, Cardiovascular: Negative pm1 for chest pain, palpitations, and edema, Respiratory: Negative for shortness of breath, cough, wheezing, and pleuritic chest pain, Abdomen/GI: Negative for abdominal pain, nausea, vomiting, diarrhea, and constipation, MS/Extremity: Negative for injury and deformity, Skin: Negative for injury, rash, and discoloration. 21:58 Neuro: Positive for headache, Negative for numbness, tingling. 21:58 All other systems are negative. Exam: 21:58 Constitutional: This is a well developed, well nourished patient who is awake, alert, pm1 and in no acute distress. 21:58 Neck: Trachea midline, no thyromegaly or masses palpated, and no cervical lymphadenopathy. Supple, full range of motion without nuchal rigidity, or vertebral point tenderness. No Meningismus. 21:58 Skin: Warm, dry with normal turgor. Normal color with no rashes, no lesions, and no evidence of cellulitis. MS/ Extremity: Pulses equal, no cyanosis. Neurovascular intact. Full, normal range of motion. 21:58 Head/face: Noted is no obvious of injury or deformity except abrasion(s), that are mild, of the left occipital area, contusion, that is superficial, of the forehead. 21:58 Cardiovascular: Exam negative for acute changes, Rate: normal, Rhythm: regular, Pulses: no pulse deficits are appreciated, Edema: is not appreciated. 21:58 Respiratory: Exam negative for acute changes, respiratory distress, shortness of breath. 21:58 Neuro: Exam negative for acute changes, Orientation: is normal, Mentation: is normal, Motor: is normal, moves all fours. Vital Signs: 19:04 BP 171 / 56; Pulse 61; Resp 16; Temp 97.0; Pulse Ox 98% ; Weight 98.88 kg; Height 5 ft. vg1 6 in. (167.64 cm); Pain 6/10; 21:46 BP 159 / 54; Pulse 56; Resp 18 S; Pulse Ox 100% on R/A; as6 23:05 BP 169 / 52; Pulse 53; Resp 18 S; Pulse Ox 100% on R/A; as6 11/22 00:10 BP 161 / 59; Pulse 81; Resp 18; Pulse Ox 98% on R/A; sonya 11/21 19:04 Body Mass Index 35.19 (98.88 kg, 167.64 cm) vg1 [place] Coma Score: 11/21 21:47 Eye Response: spontaneous(4). Verbal Response: oriented(5). Motor Response: obeys as6 commands(6). Total: 15. Trauma Score (Adult): 21:47 Eye Response: spontaneous(1); Verbal Response: oriented(1); Motor Response: obeys as6 commands(2); Systolic BP: > 89 mm Hg(4); Respiratory Rate: 10 to 29 per min(4); Mini Score: 15; Trauma Score: 12 MDM: 21:57 Patient medically screened. pm1 23:40 Data reviewed: vital signs. Data interpreted: Pulse oximetry: on room air is 100 %. pm1 Interpretation: normal. Counseling: I had a detailed discussion with the patient and/or guardian regarding: the historical points, exam findings, and any diagnostic results supporting the discharge/admit diagnosis, radiology results, the need for outpatient follow up, a neurologist, to return to the emergency department if symptoms worsen or persist or if there are any questions or concerns that arise at home. 11/21 19:23 Order name: Glucose, Ancillary Testing; Complete Time: 21:36 EDMS 11/21 21:58 Order name: CT Head C Spine pm1 11/21 21:58 Order name: Sacrum And Coccyx XRAY pm1 Administered Medications: No medications were administered Disposition: 11/22 02:20 Co-signature as Attending Physician, Neno Quiroz MD. [email or web address] Disposition Summary: 11/21/21 23:44 Discharge Ordered Location: Home pm1 Problem: new pm1 Symptoms: have improved pm1 Condition: Stable pm1 Diagnosis - Contusion of lower back and pelvis - coccyx pm1 - Contusion of other part of head - forehead and left occipital area pm1 - Fall on same level, unspecified pm1 Followup: pm1 - With: Emergency Department - When: As needed - Reason: Worsening of condition Followup: pm1 - With: Private Physician - When: 2 - 3 days - Reason: Recheck today's complaints, Continuance of care, Re-evaluation by your physician Discharge Instructions: - Discharge Summary Sheet pm1 - Concussion, Adult pm1 - Head Injury, Adult pm1 - Fall Prevention in the Home, Adult pm1 Forms: - Medication Reconciliation Form pm1 - Thank You Letter pm1 - Antibiotic Education pm1 - Prescription Opioid Use pm1 Signatures: Dispatcher [employer] EDMS Kike Rodriges NP BOILER REL[employer]ER pm1 Rabia Scales RN RN vg1 Neno Quiroz MD MD 7 Inocente Garcia RN RN as6
[2021-11-22 00:35] VITALS: TEMP 97
[2021-11-22 00:38] VITALS: BP 161/59; O2SAT 98
--- NOTE | 2021-11-22 09:00 | RAD REPORT ---
EXAM DESCRIPTION: RAD - Sacrum And Coccyx - 11/21/2021 10:41 pm CLINICAL HISTORY: PAIN COMPARISON: No comparisons FINDINGS: No acute fracture or subluxation is seen. No aggressive marrow lesion.
--- NOTE | 2021-11-22 11:34 | RAD REPORT ---
EXAM DESCRIPTION: CT Head and Cervical Spine Without Intravenous Contrast CLINICAL HISTORY: The patient is 71 years old and is Female; Fall injury TECHNIQUE: Axial computed tomography images of the head/brain and cervical spine without intravenous contrast. Sagittal and coronal reformatted images were created and reviewed. This CT exam was pe rformed using one or more of the following dose reduction techniques: automated exposure control, a djustment of the mA and/or kV according to patient size, and/or use of iterative reconstruction techn ique. COMPARISON: No relevant prior studies available. FINDINGS: BRAIN: Unremarkable. No hemorrhage. No significant white matter disease. No edema. VENTRICLES: Unremarkable. No ventriculomegaly. SKULL: No acute fracture. SINUSES: Unremarkable as visualized. No acute sinusitis. MASTOID AIR CELLS: Unremarkable as visualized. No mastoid effusion. VERTEBRAE: Reversal the normal cervical curvature is present. The vertebral body heights and al ignment are maintained. There is no acute fracture. DISCS/SPINAL CANAL/NEURAL FORAMINA: Intervertebral disc space narrowing with osteophyte formation is present from C4 through C7. Endplate sclerosis and irregularity at these levels is present. Mild bilateral neural foraminal narrowing at these levels secondary to posterior disc osteophyte complexes are present. There is no significant canal stenosis. SOFT TISSUES: Left occipital scalp soft tissue swelling is present. LUNG APICES: Unremarkable as visualized. IMPRESSION: 1. No acute intracranial findings. 2. Reversal the normal cervical curvature is present. Findings may be secondary to patient positi on versus muscle spasm. 3. Mild to moderate spondylosis of the cervical spine. Electronically signed by: Kalpana Crook MD 11/21/2021 11:23 PM SUBMARINE WORKER Due to temporary technical issues with the PACS/Fluency reporting system, reports are being signed by the in house radiologists without review as a courtesy to insure prompt reporting. The interpreting radiologist is fully responsible for the content of the report.
== END 2021-11-22 00:31 | disposition home or self-care (01) ==
LOC: ER 18:34
DX: S00.83XA Contusion of other part of head, initial encounter (principal); S30.0XXA Contusion of lower back and pelvis, initial encounter; W18.30XA Fall on same level, unspecified, initial encounter; I10 Essential (primary) hypertension; I48.91 Unspecified atrial fibrillation; I25.2 Old myocardial infarction
CPT/HCPCS: 70450; 72125; 72220; 82947; 99283

== ENCOUNTER 2022-06-24 23:34 | Emergency (ER) | payer OTHER ==
--- OUTSIDE RECORDS SUMMARY | 2022-06-24 23:39 | XMS REPORT | Continuity of Care Document ---
:1950 Author Organization [facility] t Address [address] [place] [address] Care Team Providers Name Role Phone Placido Mcfarland Attending Clinician Unavailable LEXI Attending Clinician Unavailable BALJIT_Aaron Attending Clinician Unavailable Mell Krueger Attending Clinician [phone] Marlene Harding Attending Clinician Unavailable Seb_Gregg Attending Clinician Unavailable Willy Tabor Attending Clinician Unavailable Andres Dang Attending Clinician Unavailable Placido Mcfarland Admitting Clinician Unavailable LEXI Admitting Clinician Unavailable BALJIT_Aaron Admitting Clinician Unavailable MELL MARINA Admitting Clinician Unavailable Seb_Gregg Admitting Clinician Unavailable Payers Payer Name Policy Type Policy Number Effective Date Expiration Date [facility] [id number] 2021 (MEDICARE 00:00:00 REPLACEMENT/ADVANT AGE - HMO) [place]IC[place] B[place]: [id number] 2017 [employer] 00:00:00 [place] [employer] [id number] 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 [facility] Low back Low back Problem Active 2012-102019-02-17 Memoria pain pain 1-12 13:56:12 l (disorder) (disorder) 00:00: He rmann Active 00 09/03/2013 Problem 02/17/2019 Data migrated from Insem Spaty on 03/21/15. [facility] Diarrhea Diarrhea Problem Active 2019-02-17 Memoria (finding) (finding) 06-25 13:56:12 l Active 00:00: Benjamín 06/25/2013 00 Problem 02/17/2019 Data migrated from [employer] unlimited on 03/21/15. [facility] Impaired Impaired Problem Active 2019-02-17 Memoria fasting fasting 03-11 13:56:12 l glycaemia glycaemia 00:00: Jannie jacinto (disorder) (disorder) 00 Active 03/11/2013 Problem 02/17/2019 Data migrated from [employer] unlimited on 05/27/15. 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 [facility] Diabetes Diabetes Problem Active 2019-02-17 Memoria mellitus mellitus 13:56:12 l type 2 type 2 Benjamín (disorder) (disorder) Active Problem 02/17/2019 [facility] Group Essential Essential Problem Active 2019-02-17 Memoria hypertensi hypertensi 13:56:12 l on on Benjamín (disorder) (disorder) Active Problem 02/17/2019 Data migrated from [employer] on 03/21/15. [facility] Group Hypothyroi Problem Active 2019-02-17 M emoria dism Hypothyroi 13:56:12 l (disorder) dism Mushtaq n (disorder) Active Problem 02/17/2019 Data migrated from [employer] Tiger[employer]ity on 03/21/15. [facility] Obesity Obesity Problem Active 2019-02-17 Me moria (disorder) (disorder) 13:56:12 l Active Benjamín Problem 02/17/2019 Medical Group Peripheral Periphera Problem Active 2019-02-17 Memoria nerve l nerve 13:56:12 l disease disease Benjamín (disorder) (disorder) Active Problem 02/17/2019 Data migrated from [employer] on 03/21/15. [facility] Diabetes Diabetes Problem Resolve 2012-2019-02-17 2019-02-17 Memoria mellitus mellitus d 03-11 13:56:12 13:56:12 l (disorder) (disorder) 00:00: He rmann Resolved 00 03/11/2013 Problem 02/17/2019 Data migrated from [employer] on 05/27/15.Edward a migrated from [employer] on 03/21/15. [facility] Allergies, Adverse Reactions, Alerts Allergy Allergy Status Severity Reaction(s) Onset Inactive Treating Comm ents Source Name Type Date Date Clinician No Known DA Active U 2020-1 [facility]ie 2-16 [place] [facility] 00:[facility]: d 00 [facility] No Known DA Active U 2020-1 [facility]ie 2-16 [place] [facility] 00:[facility] d 00 [facility] No Known DA Active U 2020-0 [facility] -[facility] [place] [facility] No Known DA Active U 2020-0 [facility] All[facility]ie 11-21 [place] [facility] FLORECITA Allergy Active [place] INHIBITO to da RS substanc Medical e Group Other Other Active Memoria Food Food l Allergy< Allergy< Mushtaq n sup>1</s sup>1</s up> up> Social History Social Habit Start Date Stop Date Quantity Comments Source Social History 2016-05-13 2016-05-13 [facility] 21:37:32 21:37:32 Smoking Status Start Date Stop Date Source Former Smoker [facility] Medications Ordered Filled Start Stop Current Ordering Indication Dosage Frequency Signature Comments Components Source Medication Medication Date Date Medication? Clinician (SIG) Name Name Corie 2017-10 Yes See Memori a thiazide 0-08 Instructio l 12.5 MG / 21:29: ns, # 90 Herm freddy Losartan 10 tab, TAKE Potassium 1 TABLET 100 MG Oral BY MOUTH Tablet EVERY DAY., Pharmacy: [facility] [employer] [address] 2017-10 Yes See Memori a thiazide 0-08 Instructio l 12.5 MG / 21:29: ns, # 90 Herm freddy Losartan 10 tab, TAKE Potassium 1 TABLET 100 MG Oral BY MOUTH Tablet EVERY DAY., Pharmacy: [facility] [address] No See Memori a thiazide 7-23 Instructio l 12.5 MG / 15:27: ns, # 90 Herm freddy Losartan 29 tab, TAKE Potassium 1 TABLET 100 MG Oral BY MOUTH Tablet EVERY DAY., Pharmacy: [facility] [address] No See Memori a thiazide 7-23 Instructio l 12.5 MG / 15:27: ns, # 90 Herm freddy Losartan 29 tab, TAKE Potassium 1 TABLET 100 MG Oral BY MOUTH Tablet EVERY DAY., Pharmacy: [facility] [address] Yes See Memori a thiazide 6-28 Instructio l 12.5 MG / 14:43: ns, # 90 Herm freddy Losartan 29 tab, TAKE Potassium 1 TABLET 100 MG Oral BY MOUTH Tablet EVERY DAY., Pharmacy: [facility] [address] Yes See Memori a thiazide 6-28 Instructio l 12.5 MG / 14:43: ns, # 90 Herm freddy Losartan 29 tab, TAKE Potassium 1 TABLET 100 MG Oral BY MOUTH Tablet EVERY DAY., Pharmacy: [facility] [employer] [place] [address] lisinopril lisinopril No lisinopril [place] 20 mg [...] Source BP Diastolic 2021-01-01 00:00:00 71 mm[Hg] [facility] Height 2021-01-01 00:00:00 66 [in_i] [facility] BMI (Body Mass 2021-01-01 00:00:00 37.3 kg/m2 [facility] Index) Group BP Systolic 2021-01-01 00:00:00 96 mm[Hg] [facility] Body Weight 2021-01-01 00:00:00 231.4 [lb_av] [facility] Height 2015-05-11 13:40:41 [facility] Weight 2015-05-11 13:40:41 [facility] Temperature Oral (F) 2015-05-11 13:40:41 98.5 F [facility] Heart Rate 2015-05-11 13:40:41 [facility] [place] Systolic (mm Hg) 2015-05-11 13:40:41 Juanjo rial [place] Diastolic (mm Hg) 2015-05-11 13:40:41 Mem orial [place] Height 2015-03-10 16:27:02 [facility] [place] Weight 2015-03-10 16:27:02 [facility] Temperature Oral (F) 2015-03-10 16:27:02 99.0 F [facility] Heart Rate 2015-03-10 16:27:02 [facility] [place] Systolic (mm Hg) 2015-03-10 16:27:02 Juanjo rial [place]jamín Diastolic (mm Hg) 2015-03-10 16:27:02 Mem orial [place] Height 2014-11-24 17:00:01 [facility] [place] Weight 2014-11-24 17:00:01 [facility] Temperature Oral (F) 2014-11-24 17:00:01 99.0 F [facility] [place] Heart Rate 2014-11-24 17:00:01 [facility] [place] Systolic (mm Hg) 2014-11-24 17:00:01 Juanjo rial [place]jamín Diastolic (mm Hg) 2014-11-24 17:00:01 Mem orial [place] Height 2014-10-28 16:43:11 [facility] [place] Weight 2014-10-28 16:43:11 [facility] Temperature Oral (F) 2014-10-28 16:43:11 98.4 F [facility] Respitory Rate 2014-10-28 16:43:11 Memori al [place] Heart Rate 2014-10-28 16:43:11 [facility] Systolic (mm Hg) 2014-10-28 16:43:11 Juanjo rial [place]jamín Diastolic (mm Hg) 2014-10-28 16:43:11 Mem orial [place] Weight 2014-05-26 16:24:20 [facility] [place] Temperature Oral (F) 2014-05-26 16:24:20 99.3 F [facility] [place] Respitory Rate 2014-05-26 16:24:20 Memori al [place]ín Heart Rate 2014-05-26 16:24:20 [facility] Systolic (mm Hg) 2014-05-26 16:24:20 Juanjo rial [place] Diastolic (mm Hg) 2014-05-26 16:24:20 Mem orial [place] Weight 2014-02-03 20:08:51 [facility] [place] Temperature Oral (F) 2014-02-03 20:08:51 98.0 F [facility] [place] Respitory Rate 2014-02-03 20:08:51 Memori al [place] Heart Rate 2014-02-03 20:08:51 [facility] Systolic (mm Hg) 2014-02-03 20:08:51 Juanjo rial [place]ín Diastolic (mm Hg) 2014-02-03 20:08:51 Mem orial [place] Weight 2013-09-03 15:45:41 [facility] [place] Temperature Oral (F) 2013-09-03 15:45:41 97.5 F [facility] Systolic (mm Hg) 2013-09-03 15:45:41 Juanjo rial [place] Diastolic (mm Hg) 2013-09-03 15:45:41 Mem orial [place] Heart Rate 2013-09-03 15:45:41 [facility] [place] Weight 2013-06-25 21:36:30 [facility] [place] Temperature Oral (F) 2013-06-25 21:36:30 97.9 F [facility] [place] Systolic (mm Hg) 2013-06-25 21:36:30 Juanjo rial Benjamín Diastolic (mm Hg) 2013-06-25 21:36:30 Mem orial [place] Heart Rate 2013-06-25 21:36:30 [facility] [place] Weight 2013-03-11 14:36:40 [facility] Height 2013-03-11 14:36:40 [facility] [place] Systolic (mm Hg) 2013-03-11 14:36:40 Juanjo riaflor [place] Diastolic (mm Hg) 2013-03-11 14:36:40 Mem orial [place] Heart Rate 2013-03-11 14:36:40 [facility] [place] Temperature Oral (F) 2013-03-11 14:36:40 97.7 F [facility] Procedures Procedure Date / Time Performing Clinician Source Performed Incision and drainage of 2009-10-23 00:00:00 [facility] orial [place] abdominal abscess<sup>1</sup> Total Hysterectomy [facility] Repair of Shoulder [facility] Abdominal hysterectomy [facility] Laparoscopic adjustable [facility] gastric banding Tonsillectomy [facility] Tonsillectomy [facility] Appendectomy [facility] Encounters Start End Encounter Admission Attending Care Care Encounter Source Date/Time Date/Time Type Type Clinicians Facility Department ID 2020-02-04 Inpatient UR EDELMIRA McfarlandPM INTE [id number] [facility] 11:34:00 [facility] [id number] [facility] 2020-02-04 Inpatient UR EDELMIRA McfarlandPM INTE [id number] [facility] 11:33:00 [facility] [id number] [facility] 2022-05-19 2022-05-19 Outpatient METCALF_PRI [facility] [id number] [place] 00:00:00 00:00:00 SCILLA [id number] [facility] 2022-04-11 2022-04-11 Outpatient DINORAH [facility] [id number] [place] 05:59:00 05:59:00 [facility] 2022-04-11 2022-04-11 Outpatient Mell Krueger [facility] [id number] 00:00:00 00:00:00 [place] [id number] 2022-03-16 2022-03-16 Outpatient DINORAH [facility] [id number] [place] 04:25:00 04:25:00 525 [facility] 2022-03-16 2022-03-16 Outpatient eMll Krueger [facility] [id number] 00:00:00 00:00:00 [place] [id number] 2022-03-04 2022-03-04 Outpatient METCALF_PRI [facility] [id number] [place] 04:06:00 04:06:00 SCILLA 20863 da [facility] Program 2021-12-27 2021-12-27 Outpatient BALJIT_A [facility] [id number] [place] 01:23:00 01:23:00 307 [facility] 2021-12-27 2021-12-27 Outpatient Mell Krueger [facility] [id number] 00:00:00 00:00:00 [place] [id number] 2021-12-06 2021-12-06 Outpatient KECLARKE_A [facility] [id number] [place] 04:14:00 04:14:00 214 [facility] 2021-12-06 2021-12-06 Outpatient Mell Krueger [facility] [id number] 00:00:00 00:00:00 [place] [id number] 2021-11-03 2021-11-03 Outpatient BALJIT_Aaron [facility] [id number] [place] 01:08:00 01:08:00 112 [facility] 2021-11-03 2021-11-03 Outpatient Mell Krueger [facility] [id number] 00:00:00 00:00:00 [place] [id number] 2021-10-12 2021-10-12 Outpatient BALJIT_A [facility] [id number] [place] 04:41:00 04:41:00 221 [facility] 2021-09-23 2021-09-23 Outpatient Champion_P [facility] 4636 [id number] [place] 04:23:00 04:23:00 [id number] [facility] 2021-09-23 2021-09-23 Outpatient Champion_P [facility] U [id number] [place] 04:23:00 04:23:00 [id number] [facility] 2021-09-08 2021-09-08 Outpatient Champion_P [facility] U [id number] [place] 05:26:00 05:26:00 [id number] [facility] 2021-09-08 2021-09-08 Outpatient Champion_P [facility] U [id number] [place] 05:26:00 05:26:00 [id number] [facility] 2021-09-07 2021-09-07 Outpatient BALJIT_Aaron [facility] [id number] [place] 05:31:00 05:31:00 116 [facility] 2021-09-07 2021-09-07 Outpatient Baljit Mell [facility] [id number] 00:00:00 00:00:00 [place] [id number] 2021-07-20 2021-07-20 Outpatient BALJIT_Aaron [facility] [id number] [place] 10:50:00 10:50:00 928 [facility] 2021-07-20 2021-07-20 Outpatient BaljitMell [facility] [id number] 00:00:00 00:00:00 [place] [id number] 2021-07-20 2021-07-20 Outpatient Mell Krueger [facility] [id number] 00:00:00 00:00:00 [place] [id number] 2021-05-18 2021-05-18 Outpatient Jamisonu [facility] [id number] [facility] 13:16:00 13:16:00 Marlene flores [id number] [facility] 2021-05-13 2021-05-13 [facility] G21 [id number] [facility] 09:00:00 09:00:00 markHannahmark [id number] [facility] 2021-04-27 2021-04-27 Outpatient KEFFER_A [facility] [id number] 0210 [place] 05:12:00 05:12:00 706 [facility] 2021-04-27 2021-04-27 Outpatient Mell Krueger [facility] [id number] 00:00:00 00:00:00 [place] [id number] 2021-04-08 2021-04-08 Outpatient KEFFER_A [facility] [id number] 0210 [place] 12:42:00 12:42:00 617 [facility] 2021-04-08 2021-04-08 Outpatient KEFFER_A [facility] [id number] 0210 [place] 12:42:00 12:42:00 701 [facility] 2021-04-08 2021-04-08 Outpatient Mell Krueger [place] [id number] 00:00:00 00:00:00 [place] [id number] 2021-02-04 2021-02-04 Outpatient KEFFER_A [facility] [id number] 0210 [place] 01:22:00 01:22:00 415 [facility] 2021-02-04 2021-02-04 Outpatient KEFFER_A [facility] [id number] 0210 [place] 01:22:00 01:22:00 531 [facility] 2021-02-04 2021-02-04 Outpatient BaljitMell [facility] [id number] 00:00:00 00:00:00 [place] [id number] 2021-01-06 2021-01-06 Outpatient KEFFER_A [facility] [id number] 0210 [place] 12:58:00 12:58:00 317 [facility] 2021-01-06 2021-01-06 Outpatient BaljitMell tapia [facility] [id number] 00:00:00 00:00:00 Payton [id number] 2021-01-05 2021-01-05 Outpatient BALJIT_Aaron [facility] [id number] [place] 05:38:00 05:38:00 316 [facility] 2021-01-02 2021-01-02 Outpatient Yan_W [facility] MMG [id number] [place] 12:15:00 12:15:00 0313 [facility] 2021-01-01 2021-01-01 Outpatient Yan_W MMG MMG [id number] [place] 11:18:00 11:18:00 0312 Medical Group 2021-01-01 2021-01-01 Yoel Seb [facility] [place] - [id number] [place] 00:00:00 00:00:00 MD: Leticia Real [facility] [address], [facility], Otolaryngol [facility] [address] , Ph. 2020-12-31 2020-12-31 Outpatient Yan_W [facility] MMG [id number] [place] 05:34:00 05:34:00 0311 Medical Group 2020-12-22 2020-12-22 Outpatient MMG MMG [id number] [place] 03:56:00 03:56:00 0302 [facility] 2020-12-21 2020-12-21 Outpatient MMG MMG [id number] [place] 01:36:00 01:36:00 301 [facility] 2020-12-21 2020-12-21 Outpatient MMG MMG [id number] [place] 01:36:00 01:36:00 302 [facility] 2020-11-18 2020-11-18 Outpatient DINORAH [facility] [id number] [place] 12:35:00 12:35:00 127 [facility] 2020-11-18 2020-11-18 Outpatient Mell Krueger [facility] [id number] 00:00:00 00:00:00 [place] [id number] 2020-10-07 2020-10-07 Outpatient Sharona, EDELMIRATO PAIN [id number] [facility] 09:00:00 09:00:00 Willy [id number] [facility] 2020-02-05 2020-02-05 Outpatient Bartolo, EDELMIRACL OUTD [id number] [facility] 00:13:00 00:13:00 Placido [id number] [facility] 2020-02-05 2020-02-05 Outpatient Bartolo, EDELMIRACL OUTD [id number] [facility] 00:13:00 00:13:00 Placido [id number] [facility] 2019-11-22 2019-11-22 Outpatient Alton, EDELMIRATO SURG [id number] [facility] 14:00:00 14:00:00 Andres [id number] [facility] 2018-07-30 2018-08-01 Phone nullFlavo [facility] [id number] [facility] 20:07:00 04:59:59 Message r Primary 21 l Cristina Rosa 2018-07-30 2018-08-01 Phone nullFlavo [facility] [id number] [facility] 20:07:00 04:59:59 Message r Primary 21 l Cristina Rosa 2018-07-30 2018-07-31 Outpatient [facility] [id number] 15:07:00 23:59:59 21 2018-05-14 2018-05-16 Phone nullFlavo [facility] [id number] [facility] 13:49:00 04:59:59 Message r Primary 20 l Cristina Rosa 2018-05-14 2018-05-16 Phone nullFlavo [facility] [id number] [facility] 13:49:00 04:59:59 Message r Primary 20 l Cristina Rosa 2018-05-14 2018-05-15 Outpatient [facility] [id number] 08:49:00 23:59:59 20 2018-05-14 2018-05-15 Outpatient MHMG [facility] [id number] 08:49:00 23:59:59 20 2018-04-19 2018-04-21 Phone nullFlavo [facility] [id number] [facility] 14:01:00 04:59:59 Message r Primary 19 l Care Chetan Shelley nn 2018-04-19 2018-04-21 Phone nullFlavo [facility] [id number] [facility] 14:01:00 04:59:59 Message r Primary 19 flor Rosa nn 2018-04-19 2018-04-20 Outpatient [facility] [id number] 09:01:00 23:59:59 19 2017-02-16 2017-02-16 Outpatient MHIE MHIE [id number] [facility] 13:00:00 13:00:00 12 flor ValderramaBurdette 2017-02-16 2017-02-16 Outpatient MHIE MHIE [id number] [facility] 13:00:00 13:00:00 12 flor [place] 2016-12-01 2016-12-01 Outpatient MHIE MHIE [id number] [facility] 09:15:00 09:15:00 11 flor ValderramaBurdette 2016-12-01 2016-12-01 Outpatient MHIE MHIE [id number] [facility] 09:15:00 09:15:00 10 flor [place] 2016-12-01 2016-12-01 Outpatient MHIE MHIE [id number] [facility] 09:15:00 09:15:00 11 flor ValderramaBurdette 2016-12-01 2016-12-01 Outpatient MHIE MHIE [id number] [facility] 09:15:00 09:15:00 10 flor [place] 2016-12-01 2016-12-01 Outpatient MHIE MHIE [id number] [facility] 08:00:00 08:00:00 09 flor [place] 2016-12-01 2016-12-01 Outpatient MHIE MHIE [id number] [facility] 08:00:00 08:00:00 09 flor [place] 2016-11-21 2016-11-21 Outpatient MHIE MHIE [id number] [facility] 10:00:00 10:00:00 07 flor Benjamín 2016-11-21 2016-11-21 Outpatient MHIE MHIE [id number] [facility] 10:00:00 10:00:00 07 flor [place] 2016-11-21 2016-11-21 Outpatient MHIE MHIE [id number] [facility] 08:00:00 08:00:00 08 flor Benjamín 2016-11-21 2016-11-21 Outpatient MHIE MHIE [id number] [facility] 08:00:00 08:00:00 08 flor Benjamín 2016-11-04 2016-11-04 Outpatient MHIE MHIE [id number] [facility] 10:00:00 10:00:00 06 flor Benjamín 2016-11-04 2016-11-04 Outpatient MHIE MHIE [id number] [facility] 10:00:00 10:00:00 06 flor Benjamín 2016-09-08 2016-09-08 Outpatient MHIE MHIE [id number] [facility] 13:45:00 13:45:00 05 flor Benjamín 2016-09-08 2016-09-08 Outpatient MHIE MHIE [id number] [facility] 13:45:00 13:45:00 05 flor Butts 2016-05-13 2016-05-13 Outpatient MHIE MHIE [id number] [facility] 16:25:00 16:25:00 04 flor Benjamín 2016-05-13 2016-05-13 Outpatient MHIE MHIE [id number] [facility] 16:25:00 16:25:00 04 flor Butts 2015-12-31 2015-12-31 Outpatient MHIE MHIE [id number] [facility] 10:00:00 10:00:00 03 flor Butts 2015-12-31 2015-12-31 Outpatient MHIE MHIE [id number] [facility] 10:00:00 10:00:00 03 flor Butts 2015-08-26 2015-08-26 Outpatient MHIE MHIE [id number] [facility] 16:00:00 16:00:00 02 flor Butts 2015-08-26 2015-08-26 Outpatient MHIE MHIE [id number] [facility] 16:00:00 16:00:00 02 flor Butts 2015-07-17 2015-07-17 Outpatient MHIE MHIE [id number] [facility]oria 16:25:00 16:25:00 01 flor Butts 2015-07-17 2015-07-17 Outpatient MHIE MHIE [id number] [facility]oria 16:25:00 16:25:00 01 flor Butts 2015-05-11 2015-05-11 Outpatient MHIE MHIE [id number] [facility]oria 09:00:00 09:00:00 00 flor Butts 2015-05-11 2015-05-11 Outpatient MHIE MHIE [id number] Memoria 09:00:00 09:00:00 00 flor Butts Results Test Description Test Time Test Comments Results Result [facility] manuel Comments - XR FLUORO FOR 2020-10-07 SPINE INJ 22:02:00 [facility] FREDDY [facility] : 1950 Sex: F Patient Name: FREDDY REYNOSO Unit No: [id number] EXAMS: CPT CODE: [id number] XR FLUORO FOR SPINE INJ 71209 DIAGNOSTIC CERVICAL TRANSFORAMINAL EPIRADICULAR INJECTION REFERRAL PHYSICIAN: [...] and signed by: Willy Tabor M.D. [facility] NAME: FREDDY REYNOSO [address] [facility] PHYS: Willy Brown MD [place] [address] : 1950 AGE: 70 SEX: F LOC: VEDA PHONE #: [phone] EXAM DATE: 10/07/2020 [place]US: [place] [facility] [place]: [phone] RAD #: D/C DT PAGE 1 Signed Report (CONTINUED) Patient Name: FREDDY REYNOSO Unit No: [id number] EXAMS: CPT CODE: [id number] XR FLUORO FOR SPINE INJ 79712 <Continued> CC: Technologist: Laura Suero(R) Transcribed D/ (2201) [email or web address].[facility] NAME: FREDDY REYNOSO [address] [facility] PHYS: Willy Brown MD [place], [place] [address] : 1950 AGE: 70 SEX: F LOC: VEDA PHONE #: [phone] EXAM DATE: 10/07/2020 STATUS: [place] [facility] [place]: [phone] RAD #: D/C DT PAGE 2 Signed Report Patient Name: FREDDY REYNOSO Unit No: [id number] EXAMS: CPT CODE: [id number] XR FLUORO FOR SPINE INJ 19569 <Continued> Orig Print D/T: S: 10/07/2020 (8575) [facility] NAME: FREDDY REYNOSO [address] [facility] [address] PHYS: Willy Brown MD [place], [place] [address] : 1950 AGE: 70 SEX: F LOC: [facility] PHONE #: [phone] EXAM DATE: 10/07/2020 STATUS: REG SDC FAX #: [phone] RAD #: D/C DT PAGE 3 Signed Report GLUCOSE BEDSIDE TESTING 2020-02-05 11:16:00 Test Item Value Reference Range Interpretation Comme nts GLUCOSE BEDSIDE TESTING (test code = GLUBED) 176 mg/dL 70-110 H GLUCOSE BEDSIDE [id number] 07:21:00 Test Item Value Reference Range Interpretation Comments GLUCOSE BEDSIDE TESTING (test code 163 mg/dL 70-110 H = GLUBED) BASIC METABOLIC [id number] 06:06:00 Test Item Value Reference Range Interpretation [...] CA) 9.2 MG/DL 8.5-10.1 N CBC W/AUTO [id number] 05:57:00 Test Item Value Reference Range Interpretation [...] = NO DIFF/SCN CRITERIA MDIFF) RULE OUT NE [id number] 00:54:00 Test Item Value Reference Range Interpretation Comments CREATINE KINASE 68 Unit/L 26-192 N (CK) (test code = CK) TROPONIN-I (test 0.137 NG/ML 0.000-0.045 HH Negative: < /= 0.045 code = TROPI) Positive: >/= 0.046 Correlation wit h serial results, other cardiac markers, and cl inical findings is nec essary to determine th e clinical signif icance of this result. Quantitative re sults using different methodologies s hould not be compared to one another as nume rical results may siva yby method. GLUCOSE BEDSIDE [id number] 21:28:00 Test Item Value Reference Range Interpretation Comments GLUCOSE BEDSIDE TESTING (test code 120 mg/dL 70-110 H = GLUBED) RULE OUT NE [id number] 17:55:00 Test Item Value Reference Range Interpretation Comments CREATINE KINASE 76 Unit/L 26-192 N (CK) (test code = CK) TROPONIN-I (test 0.344 NG/ML 0.000-0.045 HH Negative: < /= 0.045 code = TROPI) Positive: >/= 0.046 Correlation wit h serial results, other cardiac markers, and cl inical findings is nec essary to determine th e clinical signif icance of this result. Quantitative re sults using different methodologies s hould not be compared to one another as nume rical results may siva yby method. LACTIC [id number] 17:48:00 Test Item Value Reference Range Interpretation Comments LACTIC ACID (test code = LACT) 1.5 mmol/L 0.4-2.0 N GLUCOSE BEDSIDE [id number] 16:55:00 Test Item Value Reference Range Interpretation Comments GLUCOSE BEDSIDE TESTING (test code 124 mg/dL 70-110 H = GLUBED) [id number] 13:35:00 Test Item Value Reference Range Interpretation Comments D-DIMER (test code = DDIMER) 453 ng/mLFEU 215-500 N GLYCOSYLATED HEMOGLOBIN [id number] 12:59:00 Test Item Value Reference Range Interpretation Comments GLYCOSYLATED HEMOGLOBIN (HA1C) 6.5 % A1C 0.0-5.7 H (test code = GLYHGB) ESTIMATED AVERAGE GLUCOSE (test 140 MG/DLest code = EAG) LACTIC [id number] 12:50:00 Test Item Value Reference Range Interpretation Comments LACTIC ACID (test code = LACT) 2.1 mmol/L 0.4-2.0 H COMPREHENSIVE METABOLIC [id number] 12:49:00 Test Item Value Reference Range Interpretation [...] = LDL/HDL) 2.77 Ratio 1.48-3.22 Avg N [id number] 12:49:00 Test Item Value Reference Range Interpretation Comments PHOSPHOROUS (test code = PHOS) 3.4 MG/DL 2.5-4.9 N RULE OUT NE [id number] 12:49:00 Test Item Value Reference Range Interpretation Comments CREATINE KINASE 94 Unit/L 26-192 N (CK) (test code = CK) TROPONIN-I (test 0.251 NG/ML 0.000-0.045 HH Negative: < /= 0.045 code = TROPI) Positive: >/= 0.046 Correlation wit h serial results, other cardiac markers, and cl inical findings is nec essary to determine th e clinical signif icance of this result. Quantitative re sults using different methodologies s hould not be compared to one another as nume rical results may siva yby method. [id number] 12:49:00 Test Item Value Reference Range Interpretation Comments MAGNESIUM (test code = MAG) 1.8 MG/DL 1.8-2.4 N THYROID STIMULATING [id number] 12:49:00 Test Item Value Reference Range Interpretation Comments THYROID STIMULATING HORMONE 2.810 mcIU/ML 0.340-4.820 N (test code = TSH) CBC W/AUTO [id number] 12:33:00 Test Item Value Reference Range Interpretation [...] (test code = NO DIFF/SCN CRITERIA MDIFF) [id number] 09:12:00 Test Item Value Reference Range Interpretation Comments GLUBED (test code = GLUBED) 126 mg/dL 60-125 H Xeidfacen8396-96-64 14:55:001.1[facility] TrabdsuDdgrvgmdr2053-25-07 14:55:0024 [facility] DnltsyaVtrruggas2626-40-40 14:55:00 Test Item Value Reference Range Interpretation Comments BUN/CREAT (test code = BUN/CREAT) 22 1 6-25 [facility] HizlewxLmslntnyo2358-97-92 14:55:005.8[facility] 2015-05-11 14:55:36079Wsrxrnoe PgghmklLqjsegihu1198-82-11 14:55:88715Lkoqfwqt HzaeuysGcgqgauus9629-82-96 14:55:004.4[facility] AojqsagWlrsamiaw0957-42-97 14:55:0057[facility] DndroqoZpeevkcra5026-87-97 14:55:0097[facility] Czgizmllw0366-96-85 14:55:90793 MEQ/L[facility] FatfdxbCtunfgkee2002-16-14 14:55:004.1 MEQ/L[facility] NletfueVnpfzpqjf5655-86-39 14:55:009.7[facility] Oddpipjjb7492-02-14 14:55:0032[facility] WdnbrocRxyscapwc7264-49-47 14:55:0022 [facility] FqdhwsnUhmxpilhd2195-11-12 14:55:0086[facility] 2015-05-11 14:55:000.915[facility] LuzjcqeRdpcunlrhp3501-92-50 14:55:0014.9 [facility] WjxktspXwjsljgyrf2645-75-29 14:55:0044.8[facility] 2015-05-11 14:55:59352 K/CMMMemorial WyoetmpWpmujmnkqp3801-16-15 17:30:82316 K/CMMMemorial UhxbaymNxncaceru0690-21-79 17:30:005.9[facility] 2014-10-28 17:30:15319Wzubxmqx GewntqjMdijrbwzx8508-74-35 17:30:07771Mvhxtzzv IjfmjxwPkrxatitc7501-35-83 17:30:0062[facility] TcolakvOkarczntt1286-88-72 17:30:98909Szzegbuc YbklrhtSoytjnzin4210-65-23 17:30:17862 [facility]/L[facility] Uvokznkqq7963-81-55 17:30:004.1 MEQ/LMemorial IvorufrRxxcdmyjh3378-64-92 17:30:000.9[facility] IaorytnLotcsszgs2742-63-64 17:30:0017[facility] Whxvojvaj1193-07-15 17:30:00 Test Item Value Reference Range Interpretation Comments BUN/CREAT (test code = BUN/CREAT) 19 1 6-25 [facility] ZefsdwxYxdrabxpd5382-73-07 17:30:003.9[facility] 2014-10-28 17:30:008.7[facility] OjjbkvwIcpzyjftg3808-66-13 17:30:0032[facility] DrilnhwFctuzkhbr3069-50-47 17:30:0020[facility] WdubowrAkjzwdygi5677-33-93 17:30:0082[facility] MsgpobjFmlrifoqf3117-74-04 17:30:002.030[facility] Vtlhwpqya4845-38-86 17:30:005.9[facility] QzykosjZuyrklnnx8608-31-12 17:30:39270 [facility] XrommbsNvxnxqlgt1137-77-76 17:30:36065Mbkjzdwr [facility] 2014-10-28 17:30:0014.0[facility] MfoonvxAikmdlhoge9755-04-10 17:30:0042.0[facility] WhxjqnxMwfmdidur6157-38-20 17:20:001.31[facility] KilpzqwEofzmyqrt8051-96-87 17:20:001.810[facility] CajealoLdnifownk8073-28-64 17:20:001.31[facility] Bfkpuvivf1270-19-54 17:20:001.810[facility] VpptnxmVjqzofmbz7623-00-70 17:20:00 1.31[facility] YlizextXgvwjzrjq7473-21-93 17:20:001.810[facility] 2014-02-03 21:15:006.2[facility] VdirkabRxmdcekro3574-07-44 21:15:23769Mrvbclae NnedtmfXexavpkqj9433-44-22 21:15:00076Faempjzy LcgoowxFmkkkgits7995-18-30 21:15:006.2[facility] EkogvnaMnkoyepqt6854-98-18 21:15:41525Ztdddxau Benjamín Eqklyucsr8995-65-96 21:15:50503Yewjrdjm JamfczsFoqmkoymk5055-49-04 21:15:006.2 [facility] HalaucdBwiwyqrvq0402-46-92 21:15:59295Alathkym [facility] 2014-02-03 21:15:49439Riqnflps DkaodgsChawebeyb6675-46-79 21:15:0049[facility] ZlsdfjnJhajgffuh6208-12-58 21:15:62190Irqxdhuc EjypbpnKjwjhmeos0341-62-72 21:15:37144 MEQ/LMemorial PuvlkwfFgtukiyyu8381-33-09 21:15:003.8 MEQ/LMemorial AvtmqxwUjzrcjrca7712-48-82 21:15:000.9[facility] MuvhyhpEaiqxalan8569-04-41 21:15:0021[facility] GeadyalYqzimsiuj2413-92-59 21:15:00 Test Item Value Reference Range Interpretation Comments BUN/CREAT (test code = BUN/CREAT) 23 1 6-25 [facility] QwsdqxlPlqiakbjt0217-03-67 21:15:004.1[facility] 2014-02-03 21:15:009.3[facility] StabbfbApmmkjyqx5540-46-09 21:15:0036[facility] XkyjfquPilxnspfi4628-84-75 21:15:0022[facility] LeybpwsEovgfjicz5358-49-45 21:15:0088[facility] XdeqdefGmgqtyfrh3690-93-95 21:15:0021.100[facility] Xhifgxrflm9499-49-31 21:15:0014.5[facility] ZdqeifeZpezuwgfub8162-87-37 21:15:00 43.3[facility] VihjveyEwfxbvywbx0063-01-40 21:15:00279 K/CMMM[facility]orial [facility] Zrdttueca7618-57-32 15:10:007.4[facility] HbeebtqBporgconk2987-20-13 15:10:007.4 [facility] DityejtDeuofafbr9559-67-05 15:10:007.4[facility] 2013-03-11 15:10:007.4[facility] DontoetKvdnfnqtv1091-31-94 17:30:007.7[facility] HnduwduFrgverpmz9200-93-51 17:30:78572Sqmzrsjb GiyerojPgzdxhckl1243-40-92 17:30:29105Unvxqohx NiftqkzRbganvvbl9398-86-91 17:30:007.7[facility] Trllhseuf3058-54-09 17:30:14821Bkfnrmbo CcityfeXbeubypiy0281-68-82 17:30:88763 [facility] XrqoijhGytnueyie7025-47-66 17:30:007.7[facility] 2012-11-23 17:30:41596Kjhkkeid NjmraivDxfoxftph2490-26-64 17:30:95972Vpmaukqo OkiamfuNysffynpi0303-68-04 17:30:0042[facility] IeoqluiOonewysue7421-32-62 17:30:0099[facility] BvmdhzaYkoliapoo2787-54-77 17:30:08637 MEQ/L[facility] Bdgnlkehj6046-11-50 17:30:004.1 MEQ/LMemorial OauaqicEfeyfovfi2644-92-33 17:30:000.7[facility] SgzzakjRavkljqhm2379-04-18 17:30:0014[facility] Qybvvqyys8650-38-77 17:30:00 Test Item Value Reference Range Interpretation Comments BUN/CREAT (test code = BUN/CREAT) 20 1 6-25 [facility] OtjnhljUxjwhcdig5755-00-86 17:30:007.7[facility] 2012-11-23 17:30:96523Plwgnrod KdggadaZaswwqmdp9698-68-71 17:30:32029Ombqlazl HrdergiAncsrtzad3973-94-94 17:30:004.1[facility] GvzystiXgvuwwszn8845-74-62 17:30:008.8[facility] QkzlpdsZizjzzvqr3380-78-19 17:30:0033[facility] Cbxzhglrs1916-96-57 17:30:0022[facility] QdhhqigEwawzrrhy5440-88-21 17:30:0085 [facility] XurypcdTwbrwxhud2271-18-39 17:30:003.550[facility] 2012-11-23 17:30:0014.2[facility] VrrtozpBqxqznorxb9543-58-47 17:30:0042.4[facility] GnpbztfLjyvzkrele3644-99-51 17:30:43046 K/CMMMemorial Benjamín
[2022-06-25 00:57] LABS: Absolute Lymphocytes (CBC) 2.6 K/uL (0.7-4.9); Lymphocytes % 28.4 % (15.3-44.8); MPV 8.4 fL (7.6-11.3); RBC Red Blood Cell Count 4.67 M/uL (3.86-4.86)
[2022-06-25 00:58] LABS: Protime INR 1.08
[2022-06-25] MEDS ORDERED: DIPHENHYDRAMINE 50 MG/ML VIAL ONE (01:00)
[2022-06-25] MEDS ORDERED: METOCLOPRAMIDE 10 MG/2mL INJ ONE (01:00)
[2022-06-25] MEDS ORDERED: FENTANYL CITR 100 MCG/2 ML ONE (01:02)
[2022-06-25] MEDS ORDERED: NA CHLORIDE 0.9% 500 ML ONE (01:02)
[2022-06-25 01:15] LABS: ALT/SGPT 23 U/L (12-78); Albumin 3.8 g/dL (3.4-5.0); Alkaline Phosphatase 108 U/L (45-117); BUN Blood Urea Nitrogen 17 mg/dL (7-18); Bicarbonate 26 mmol/L (21-32); Bilirubin Total 0.3 mg/dL (0.2-1.0); Glomerular Filtration Rate 57 ml/min (=/>90); Glucose Level 180 mg/dL (74-106); NT PRO-BNP 778 pg/mL (<125); Protein, Total 7.9 g/dL (6.4-8.2); Sodium Level 137 mmol/L (136-145); Troponin High Sensitivity 21.9 pg/mL (<58.9)
[2022-06-25 01:16] LABS: AST/SGOT 17 U/L (15-37); Bilirubin Direct < 0.1 mg/dL (0-0.2); Potassium 4.1 mmol/L (3.5-5.1)
[2022-06-25 01:49] LABS: Urine Blood Trace-lysed (Negative); Urine Glucose Negative (Negative); Urine Protein 2+ (Negative)
--- NOTE | 2022-06-25 04:08 | RAD REPORT ---
EXAM DESCRIPTION: CT - Head Brain Wo Cont - 06/25/2022 1:28 am CLINICAL HISTORY: Headache, new or worsening Headache, drowsiness COMPARISON: No comparisons TECHNIQUE: All CT scans are performed using dose optimization technique as appropriate and may inclu de automated exposure control or mA/KV adjustment according to patient size. FINDINGS: No intracranial hemorrhage, hydrocephalus or extra-axial fluid collection.Mild generalized brain atrophy is present.No areas of brain edema or evidence of midline shift. The paranasal sinuses and mastoids are clear. The calvarium is intact. IMPRESSION: No acute intracranial abnormality.
--- NOTE | 2022-06-25 04:13 | RAD REPORT ---
EXAM DESCRIPTION: RAD - Chest Single View - 06/25/2022 1:09 am CLINICAL HISTORY: COUGH Chest pain. COMPARISON: No comparisons FINDINGS: Portable technique limits examination quality. The lungs are mildly emphysematous but grossly clear. The heart is mildly enlarged in size. No displa ange fractures. IMPRESSION: No acute intrathoracic process suspected.
--- NOTE | 2022-06-25 04:33 | ER ---
Nurse's Notes [facility] Name: Shanelle Sánchez Age: 72 yrs Sex: Female : 1950 Arrival Date: 06/24/2022 Time: 23:38 Bed 5 Private MD: Diagnosis: Headache Presentation: 06/24 23:54 Chief complaint: Patient states: "I have a headache that's been going on for 2 weeks as6 and today it got a lot worse". Coronavirus screen: At this time, the client does not indicate any symptoms associated with coronavirus-19. Ebola Screen: No symptoms or risks identified at this time. Initial Sepsis Screen: Does the patient meet any 2 criteria? No. Patient's initial sepsis screen is negative. Does the patient have a suspected source of infection? No. Patient's initial sepsis screen is negative. Risk Assessment: Do you want to hurt yourself or someone else? Patient reports no desire to harm self or others. Onset of symptoms was June 10, 2022. 23:54 Method Of Arrival: Ambulatory as6 23:54 Acuity: WHITLEY 3 as6 Triage Assessment: 06/25 00:17 General: Appears in no apparent distress. Behavior is calm, cooperative. ha1 04:51 Pain: Also complains of. ha1 05:06 Headache History: The patient has had previous headaches. kd3 Historical: - Allergies: 06/24 23:58 No Known Allergies; as6 - Home Meds: 23:58 Eliquis 5 mg oral tab 1 tab 2 times per day [Active]; bupropion HCl 150 mg Oral Tb24 1 as6 tab once daily [Active]; oxybutynin chloride 10 mg Oral tr24 1 tab once daily [Active]; gabapentin 400 mg oral cap 1 cap 3 times per day [Active]; venlafaxine 150 mg oral cp24 1 cap once daily [Active]; levothyroxine 125 mcg cap 1 cap once daily [Active]; valsartan 320 mg oral tab 1 tab once daily [Active]; rosuvastatin 10 mg oral cpSP 1 cap once daily [Active]; - PMHx: 23:58 Atrial fibrillation; Hypertensive disorder; Myocardial infarction; as6 - PSHx: 23:58 Appendectomy; hysterectomy; Tonsillectomy; as6 - Immunization history:: Client reports receiving the Guille \\T\\ Guille single-dose vaccine. - Social history:: Smoking status: Patient denies any tobacco usage or history of. Screenin/03 00:35 Abuse screen: Denies threats or abuse. Nutritional screening: No deficits noted. ha1 Tuberculosis screening: No symptoms or risk factors identified. Fall Risk Gait- Normal/Bed Rest/Wheelchair (0 pts) Mental Status- Oriented to own ability (0 pts). Total Gandhi Fall Scale indicates No Risk (0-24 pts). Assessment: 00:25 Pain: Complains of pain in occipital area of head Pain does not radiate. Pain currently ha1 is 9 out of 10 on a pain scale. Quality of pain is described as pressure, Pain began two weeks ago Is intermittent, Alleviated by medications. Neuro: Level of Consciousness is awake, alert, Oriented to person, place, time, situation, Speech is normal, Pupils are PERRLA, Reports headache occipital area, photophobia in left eye. Cardiovascular: Heart tones S1 S2 present Capillary refill < 3 seconds. Cardiovascular:. Respiratory: Airway is patent Trachea midline Respiratory effort is even, unlabored, Breath sounds are clear bilaterally. EENT: No deficits noted. No signs and/or symptoms were reported regarding the EENT system. Derm: No signs and/or symptoms reported regarding the dermatologic system. Skin is intact, Skin is pink, warm \\T\\ dry. Musculoskeletal: No signs and/or symptoms reported regarding the musculoskeletal system. Circulation, motion, and sensation intact. Range of motion: intact in all extremities. 00:25 General: Appears in no apparent distress. Behavior is calm, cooperative. ha1 01:16 Reassessment: Patient appears in no apparent distress at this time. No changes from ha1 previously documented assessment. Patient and/or family updated on plan of care and expected duration. Pain level reassessed. Patient is alert, oriented x 3, equal unlabored respirations, skin warm/dry/pink. going to CT. 02:10 Reassessment: Patient and/or family updated on plan of care and expected duration. Pain ha1 level reassessed. Patient is alert, oriented x 3, equal unlabored respirations, skin warm/dry/pink. 04:53 Reassessment: Patient and/or family updated on plan of care and expected duration. Pain ha1 level reassessed. Patient is alert, oriented x 3, equal unlabored respirations, skin warm/dry/pink. Patient states feeling better. Patient states symptoms have improved. Vital Signs: 06/24 23:54 BP 171 / 99; Pulse 78; Resp 18 S; Temp 99.1(O); Pulse Ox 97% on R/A; Weight 96.16 kg as6 (R); Height 5 ft. 6 in. (167.64 cm) (R); Pain 9/10; 06/25 00:33 BP 162 / 85; Pulse 78; Resp 17 S; Pulse Ox 97% on R/A; Pain 9/10; ha1 01:15 BP 143 / 92; Pulse 83; Resp 17 S; Pulse Ox 100% on R/A; Pain 9/10; ha1 01:50 BP 129 / 76; Pulse 66; Resp 17; Pulse Ox 98% on R/A; ll3 02:45 BP 145 / 90; Pulse 66; Resp 17; Pulse Ox 97% ; ll3 06/24 23:54 Body Mass Index 34.22 (96.16 kg, 167.64 cm) as6 [place] Coma Score: 02:05 Eye Response: spontaneous(4). Verbal Response: oriented(5). Motor Response: obeys zainab commands(6). Total: 15. ED Course: 06/24 23:38 Patient arrived in ED. bp1 23:58 Triage completed. as6 06/25 00:01 Arm band placed on. as6 00:21 Amanda Ray, ANILA is Primary Nurse. kd3 00:25 Kevin Zuniga MD is Attending Physician. zainab 00:35 Patient has correct armband on for positive identification. Bed in low position. Call ha1 light in reach. Side rails up X 1. 00:35 Inserted saline lock: 20 gauge in left antecubital area, using aseptic technique. ha1 01:11 XRAY Chest (1 view) In Process Unspecified. EDMS 01:30 CT Head Brain wo Cont In Process Unspecified. EDMS 04:32 Javier Hodges MD is Referral Physician. zainab 04:51 No provider procedures requiring assistance completed. IV discontinued, intact, ha1 bleeding controlled, No redness/swelling at site. Pressure dressing applied. Administered Medications: 01:10 Drug: NS 0.9% 500 ml Route: IV; Rate: bolus; Site: left antecubital; ha1 03:00 Follow up: Response: No adverse reaction; IV Status: Completed infusion; IV Intake: ha1 500ml 01:10 Drug: Reglan (metoCLOPramide) 10 mg Route: IVP; Site: left antecubital; ha1 01:32 Follow up: Response: No adverse reaction ha1 01:13 Drug: Benadryl (diphenhydrAMINE) 25 mg Route: IVP; Site: left antecubital; ha1 01:32 Follow up: Response: No adverse reaction ha1 01:13 Drug: fentaNYL (PF) 25 mcg Route: IVP; Site: left antecubital; ha1 01:32 Follow up: Response: No adverse reaction; Pain is decreased; RASS: Alert and Calm (0) ha1 Medication: 05:05 VIS not applicable for this client. ha1 Intake: 03:00 IV: 500ml; Total: 500ml. ha1 Outcome: 04:33 Discharge ordered by MD. lamb 05:00 Patient left the ED. ha1 05:03 Discharged to home ambulatory. ha1 05:03 Condition: stable 05:03 Discharge instructions given to patient, family, Instructed on discharge instructions, follow up and referral plans. medication usage, Demonstrated understanding of instructions, follow-up care, medications. Signatures: Dispatcher [employer] EDMS Kevin Zuniga MD MD cha Paniauga, Brittany bp1 Slawson, Ashby RN RN as6 Keon Titus RN RN greg3 Amanda Ray RN RN kd3 Nancy Miguel RN RN 1 Corrections: (The following items were deleted from the chart) 04:56 04:56 Response: No adverse reaction ha1 ha1 04:57 04:57 Response: No adverse reaction; Pain is decreased; RASS: Alert and Calm (0) ha1 ha1
--- NOTE | 2022-06-25 04:33 | EDPHYS ---
Physician Documentation [facility] Name: Shanelle Sánchez Age: 72 yrs Sex: Female : 1950 Arrival Date: 06/24/2022 Time: 23:38 Bed 5 Private MD: HANH Physician Kevin Zuniga HPI: 06/25 01:56 This 72 yrs old Female presents to ER via Ambulatory with complaints of zainab Headache. Historical: - Allergies: 06/24 23:58 No Known Allergies; as6 - Home Meds: 23:58 Eliquis 5 mg oral tab 1 tab 2 times per day [Active]; bupropion HCl 150 mg Oral Tb24 1 as6 tab once daily [Active]; oxybutynin chloride 10 mg Oral tr24 1 tab once daily [Active]; gabapentin 400 mg oral cap 1 cap 3 times per day [Active]; venlafaxine 150 mg oral cp24 1 cap once daily [Active]; levothyroxine 125 mcg cap 1 cap once daily [Active]; valsartan 320 mg oral tab 1 tab once daily [Active]; rosuvastatin 10 mg oral cpSP 1 cap once daily [Active]; - PMHx: 23:58 Atrial fibrillation; Hypertensive disorder; Myocardial infarction; as6 - PSHx: 23:58 Appendectomy; hysterectomy; Tonsillectomy; as6 - Immunization history:: Client reports receiving the Guille \T\ Guille single-dose vaccine. - Social history:: Smoking status: Patient denies any tobacco usage or history of. ROS: 06/25 01:59 Constitutional: Negative for fever, chills, and weight loss, Eyes: Negative for injury, zainab pain, redness, and discharge, ENT: Negative for injury, pain, and discharge, Neck: Negative for injury, pain, and swelling, Cardiovascular: Negative for chest pain, palpitations, and edema, Respiratory: Negative for shortness of breath, cough, wheezing, and pleuritic chest pain, Abdomen/GI: Negative for abdominal pain, nausea, vomiting, diarrhea, and constipation, Back: Negative for injury and pain, : Negative for injury, bleeding, discharge, and swelling, MS/Extremity: Negative for injury and deformity, Skin: Negative for injury, rash, and discoloration, Psych: Negative for depression, anxiety, suicide ideation, homicidal ideation, and hallucinations, Allergy/Immunology: Negative for hives, rash, and allergies, Endocrine: Negative for neck swelling, polydipsia, polyuria, polyphagia, and marked weight changes, Hematologic/Lymphatic: Negative for swollen nodes, abnormal bleeding, and unusual bruising. Neuro: Positive for hearing loss. Exam: 01:59 Constitutional: This is a well developed, well nourished patient who is awake, alert, zainab and in no acute distress. Head/Face: Normocephalic, atraumatic. Eyes: Pupils equal round and reactive to light, extra-ocular motions intact. Lids and lashes normal. Conjunctiva and sclera are non-icteric and not injected. Cornea within normal limits. Periorbital areas with no swelling, redness, or edema. ENT: Nares patent. No nasal discharge, no septal abnormalities noted. Tympanic membranes are normal and external auditory canals are clear. Oropharynx with no redness, swelling, or masses, exudates, or evidence of obstruction, uvula midline. Mucous membranes moist. Neck: Trachea midline, no thyromegaly or masses palpated, and no cervical lymphadenopathy. Supple, full range of motion without nuchal rigidity, or vertebral point tenderness. No Meningismus. Chest/axilla: Normal chest wall appearance and motion. Nontender with no deformity. No lesions are appreciated. Cardiovascular: Regular rate and rhythm with a normal S1 and S2. No gallops, murmurs, or rubs. Normal PMI, no JVD. No pulse deficits. Respiratory: Lungs have equal breath sounds bilaterally, clear to auscultation and percussion. No rales, rhonchi or wheezes noted. No increased work of breathing, no retractions or nasal flaring. Abdomen/GI: Soft, non-tender, with normal bowel sounds. No distension or tympany. No guarding or rebound. No evidence of tenderness throughout. Back: No spinal tenderness. No costovertebral tenderness. Full range of motion. Female : Normal external genitalia. Skin: Warm, dry with normal turgor. Normal color with no rashes, no lesions, and no evidence of cellulitis. MS/ Extremity: Pulses equal, no cyanosis. Neurovascular intact. Full, normal range of motion. Neuro: Awake and alert, GCS 15, oriented to person, place, time, and situation. Cranial nerves II-XII grossly intact. Motor strength 5/5 in all extremities. Sensory grossly intact. Cerebellar exam normal. Normal gait. Psych: Awake, alert, with orientation to person, place and time. Behavior, mood, and affect are within normal limits. 01:59 Musculoskeletal/extremity: DVT Exam: No signs of deep vein thrombosis. no pain, no swelling, no tenderness, negative Homans' sign noted on exam, no appreciated bluish discoloration, no erythema, no increased warmth. 02:04 ECG was reviewed by the Attending Physician. zainab Vital Signs: 06/24 23:54 BP 171 / 99; Pulse 78; Resp 18 S; Temp 99.1(O); Pulse Ox 97% on R/A; Weight 96.16 kg as6 (R); Height 5 ft. 6 in. (167.64 cm) (R); Pain 9/10; 06/25 00:33 BP 162 / 85; Pulse 78; Resp 17 S; Pulse Ox 97% on R/A; Pain 9/10; ha1 01:15 BP 143 / 92; Pulse 83; Resp 17 S; Pulse Ox 100% on R/A; Pain 9/10; ha1 01:50 BP 129 / 76; Pulse 66; Resp 17; Pulse Ox 98% on R/A; ll3 02:45 BP 145 / 90; Pulse 66; Resp 17; Pulse Ox 97% ; ll3 06/24 23:54 Body Mass Index 34.22 (96.16 kg, 167.64 cm) as6 Mini Coma Score: 02:05 Eye Response: spontaneous(4). Verbal Response: oriented(5). Motor Response: obeys zainab commands(6). Total: 15. MDM: 00:25 Patient medically screened. zainab 00:39 Patient medically screened. zainab 02:05 Differential diagnosis: cluster headache, cerebral vascular accident, hypertensive zainab headache, hyponatremia, intracerebral hemorrhage, migraine, neoplasm, sinusitis, subarachnoid bleed, temporal arteritis, tension headache, trigeminal neuralgia, uremia, vasomotor headache. Data reviewed: vital signs, nurses notes, lab test result(s), EKG, radiologic studies, CT scan, plain films. Data interpreted: cafeteria monitor: rate is 66 beats/min, rhythm is regular, Pulse oximetry: on room air is 98 %. Test interpretation: by ED physician or midlevel provider: ECG, plain radiologic studies. Counseling: I had a detailed discussion with the patient and/or guardian regarding: the historical points, exam findings, and any diagnostic results supporting the discharge/admit diagnosis, lab results, radiology results, the need for outpatient follow up, for definitive care, a family practitioner, a neurologist. 06/25 00:27 Order name: Basic Metabolic Panel; Complete Time: :56 [facility] 06/25 00:27 Order name: CBC with Diff; Complete Time: :56 [facility] 06/25 00:27 Order name: LFT's; Complete Time: :56 [facility] 06/25 00:27 Order name: Magnesium; Complete Time: :56 [facility] 06/25 00:27 Order name: NT PRO-BNP; Complete Time: :56 [facility] 06/25 00:27 Order name: PT-INR; Complete Time: :56 [facility] 06/25 00:27 Order name: Troponin HS; Complete Time: :56 [facility] 06/25 00:27 Order name: XRAY Chest (1 view); Complete Time: 04:32 [facility] 06/25 00:27 Order name: CT Head Brain wo Cont; Complete Time: 04:32 [facility] 06/25 01:49 Order name: Urine Dipstick-Ancillary; Complete Time: :56 [facility] 06/25 00:27 Order name: EKG; Complete Time: 00:28 [facility] 06/25 00:27 Order name: Cardiac monitoring; Complete Time: 01:39 [facility] 06/25 00:27 Order name: EKG - Nurse/Tech; Complete Time: 01:40 [facility] 06/25 00:27 Order name: IV Saline Lock; Complete Time: 00:51 [facility] 06/25 00:27 Order name: Labs collected and sent; Complete Time: 00:51 [facility] 06/25 00:27 Order name: O2 Per Protocol; Complete Time: 00:51 [facility] 06/25 00:27 Order name: O2 Sat Monitoring; Complete Time: 00:51 [facility] 06/25 00:27 Order name: Urine Dipstick-Ancillary (obtain specimen); Complete Time: 01:39 [facility] EC:04 Rate is 72 beats/min. Rhythm is regular. QRS Excel is Normal. CT interval is normal. QRS zainab interval is normal. QT interval is normal. No Q waves. T waves are Normal. No ST changes noted. Clinical impression: NSR w/ Non-specific ST/T Changes and No evidence of ischemia. Interpreted by me. Reviewed by me. Administered Medications: 01:10 Drug: NS 0.9% 500 ml Route: IV; Rate: bolus; Site: left antecubital; ha1 03:00 Follow up: Response: No adverse reaction; IV Status: Completed infusion; IV Intake: ha1 500ml 01:10 Drug: Reglan (metoCLOPramide) 10 mg Route: IVP; Site: left antecubital; ha1 01:32 Follow up: Response: No adverse reaction ha1 01:13 Drug: Benadryl (diphenhydrAMINE) 25 mg Route: IVP; Site: left antecubital; ha1 01:32 Follow up: Response: No adverse reaction ha1 01:13 Drug: fentaNYL (PF) 25 mcg Route: IVP; Site: left antecubital; ha1 01:32 Follow up: Response: No adverse reaction; Pain is decreased; RASS: Alert and Calm (0) ha1 Disposition Summary: 06/25/22 04:33 Discharge Ordered Location: Home zainab Problem: new zainab Symptoms: have improved zainab Condition: Stable zainab Diagnosis - Headache zainab Followup: zainab - With: Private Physician - When: 2 - 3 days - Reason: Recheck today's complaints, Continuance of care, Re-evaluation by your physician Followup: zainab - With: - When: 2 - 3 days - Reason: Recheck today's complaints, Re-evaluation by your physician Discharge Instructions: - Discharge Summary Sheet zainab - General Headache Without Cause zainab - General Headache Without Cause, [id number] zainab Forms: - Medication Reconciliation Form zainab - Thank You Letter zainab - Antibiotic Education zainab - Prescription Opioid Use zainab Prescriptions: - Fioricet with Codeine [id number] mg Oral capsule - take 1 capsule by ORAL route every 4 hours as needed not to exceed 6 capsules zainab per 24hrs; 20 capsule; Refills: 0, Product Selection Permitted - Zofran 4 mg Oral Tablet - take 1 tablet by ORAL route every 12 hours As needed; 20 tablet; Refills: 0, zainab Product Selection Permitted Signatures: Dispatcher [employer] Kevin Westbrook MD MD cha Slawson, Ashby, RN RN as6 Nancy Miguel RN RN ha1
[2022-06-25 06:29] VITALS: TEMP 99.1
[2022-06-25 06:38] VITALS: BP 145/90; O2SAT 97
--- NOTE | 2022-06-25 09:19 | EKG ---
Test Date: 2022-06-25 Test Time: 01:41:52 [employer] Frier: DIONY MEASUREMENT RESULTS: Intervals: Rate: 72 UT: 146 QRSD: 94 QT: 414 QTc: 453 [place]: P: 61 UT: 146 QRS: 0 T: 46 INTERPRETIVE STATEMENTS: Normal sinus rhythm Possible Left atrial enlargement Septal infarct, age undetermined Abnormal ECG Compared to ECG 01/02/2020 10:42:58 Myocardial infarct finding now present Sinus bradycardia no longer present Sinus arrhythmia no longer present Electronically Signed On 06-25-22 09:18:29 CDT by Noah Angulo
== END 2022-06-25 05:00 | disposition home or self-care (01) ==
LOC: ER 23:34
DX: R51.9 Headache, unspecified (principal); I10 Essential (primary) hypertension; I48.91 Unspecified atrial fibrillation; I25.2 Old myocardial infarction; Z79.01 Long term (current) use of anticoagulants
CPT/HCPCS: 96361; 93005; 85025; 80048; 36415; 83735; 85610; 80076; 81003; 84484; 83880; 70450; 71045; 96375; 96374; 99284; J2765; J1200; J3010; J7040